=== PATIENT | female | born 1980 | race Caucasian/White ===

== ENCOUNTER 2017-01-24 16:35 | Emergency (ER) | payer BC, OTHER ==
--- NOTE | 2017-01-24 17:25 | PD ---
HPI Chief Complaint Cramping/contractions Travel History International Travel<30 Days: No Contact w/Intl Traveler<30Days: No Known Affected Area: No History of Present Illness HPI 36-year-old 002, IUP at 22.1 care complicated by asthma, history of delivery for previa Patient presents complaining of sharp, stabbing, and cramping pain that occurs every 5-7 minutes and lasts for 10 seconds. She initially noticed this about 8 or 9 PM last night but it was more irregular nature. This afternoon she started noticing this pain occurring about 5 times per hour. There are no aggravating or alleviating factors. There are no attempted treatments. She denies any painful contractions or cramping that lasts any longer period of time. She denies any vaginal bleeding or leaking of fluid. She feels normal movement. She denies any other concerns or complaints at this time. Weeks Gestation: 22 Para: 2 : 3 History Past Medical History Narrative Medical Asthma Obstetric History Obstetric History 002 1 1 for placenta previa Past Surgical History Narrative Surgical section Family History Narrative Family History HTN Social History Alcohol Use: No Tobacco Use: No Substance Abuse: No Allergies-Medications (Allergen,Severity, Reaction): Coded Allergies: No Known Allergies (Unverified , 12/24/13) Home Meds No Active Prescriptions or Reported Meds Review of Systems Except as stated in HPI: all other systems reviewed are Neg Physical Exam Narrative GENERAL: Well-nourished, well-developed patient. SKIN: Warm and dry. HEAD: Normocephalic and atraumatic. EYES: No scleral icterus. No injection or drainage. ENT: No nasal drainage noted. Mucous membranes pink. Airway patent. NECK: Supple, trachea midline. No JVD. CARDIOVASCULAR: Regular rate and rhythm without murmurs, gallops, or rubs. RESPIRATORY: Breath sounds equal bilaterally. No accessory muscle use. BREASTS: Deferred ABDOMEN/GI: Abdomen soft, non-tender, bowel sounds present, no rebound, no guarding Gravid GENITOURINARY: External Genitalia: intact and normal in appearance. Normal BUS. Physiologic discharge noted. Grossly normal rugae. No cervical or vaginal masses noted. SVE closed/thick/high. No uterine contractions noted on toco. FHT's: heart tones in the 140s, appropriate for gestational age. EXTREMITIES: No cyanosis or edema. BACK: Nontender without obvious deformity. No CVA tenderness. NEUROLOGICAL: Awake and alert. Motor and sensory grossly within normal limits. Five out of 5 muscle strength in all muscle groups. Normal speech. Musculoskeletal: Grossly normal range of motion, gait, muscle strength Psychiatric: Grossly normal memory and affect Data Data Orders Orders Vital Signs (Adult) .ON ADMISSION (01/24/17) ^ Labor Status (01/24/17) Urinalysis - C+S If Indicated (01/24/17) Diet Liquid (01/24/17 Dinner) ^ Hydration (01/24/17) Acetaminophen (Tylenol) (01/24/17 17:30) MDM Plan Assessment/plan: 1. IUP at 22.1 2. Cramping abdominal pain: No evidence of labor with no contractions noted on toco and cervix closed/thick/high. Described the nature of a typical contraction the crescendo decrescendo that lasts for typically longer than 10 seconds. Strict labor precautions given. Patient reports she feels better after receiving Tylenol. Discussed possibilities contributing to pain, but no evidence of labor. 3. Asthma: Stable 4. well-being: heart rate appropriate for gestational age. 5. UA: No evidence of UTI 6. Follow up with primary OB in 2-3 days or sooner if needed Diagnosis Diagnosis: Primary Impression: 22 weeks gestation of Additional Impression: False labor before 37 completed weeks of gestation during in third trimester, antepartum Disposition: 01 DISCHARGE HOME Condition: Good Scripts No Active Prescriptions or Reported Anusha Okeefe MD Jan 24, 2017 17:25
[2017-01-24] MEDS ORDERED: ACETAMINOPHEN 500 MG CPLT PO ONE (17:30)
[2017-01-24 17:58] LABS: BLOOD, URINE TRACE (NEG); GLUCOSE,URINE NEG (NEG); KETONE, URINE NEG (NEG); NITRITE,URINE NEG (NEG); URINE COLOR LIGHT-YELLOW (YELLW/STRAW)
[2017-01-24 18:00] LABS: COMMENT (UR) CULT NOT INDICATED; CULTURE IF INDICATED CULT NOT INDICATED
== END 2017-01-24 18:55 | disposition home or self-care (01) ==
LOC: HOBED 16:35
DX: O47.02 False labor before 37 completed weeks of gestation, second trimester (principal); Z87.09 Personal history of other diseases of the respiratory system; Z3A.22 22 weeks gestation of pregnancy
CPT/HCPCS: 59025; 81001

== ENCOUNTER 2017-04-30 11:04 | Emergency (ER) | payer BC ==
[~2017-04-30] VITALS: Ht 170.2 cm; Wt 96.6 kg
--- NOTE | 2017-04-30 11:58 | PD ---
HPI Chief Complaint contractions Date Seen: Apr 30, 2017 Travel History International Travel<30 Days: No Contact w/Intl Traveler<30Days: No Known Affected Area: No History of Present Illness HPI 37yo at 36w5 days by KISHA 05/23/17 comes in complaining of contractions. Patient states she started having contractions last night and they worsen this morning and she saw Dr. Calle in the office who stated she was 3 cm and sent her over to rule out labor. Patient complains of continued contractions that are mild but they seem to be worsening. She had a vaginal delivery followed by a section and she is considering a with this Weeks Gestation: 36 (36.5) Para: 2 : 3 History Past Medical History Narrative Medical Asthma Obstetric History Obstetric History Spontaneous vaginal delivery followed by section for placenta previa Past Surgical History Narrative Surgical Family History Family History: Negative Social History Alcohol Use: No Tobacco Use: No Substance Abuse: No Allergies-Medications (Allergen,Severity, Reaction): Coded Allergies: No Known Allergies (Unverified , 12/24/13) Home Meds No Active Prescriptions or Reported Meds Review of Systems Except as stated in HPI: all other systems reviewed are Neg Physical Exam Narrative GENERAL: Well-nourished, well-developed patient. SKIN: Warm and dry. HEAD: Normocephalic and atraumatic. EYES: No scleral icterus. No injection or drainage. ENT: No nasal drainage noted. Mucous membranes pink. Airway patent. NECK: Supple, trachea midline. No JVD. CARDIOVASCULAR: Regular rate and rhythm without murmurs, gallops, or rubs. RESPIRATORY: Breath sounds equal bilaterally. No accessory muscle use. BREASTS: Bilateral exam showed no masses , no retractions, no nipple discharge. ABDOMEN/GI: Abdomen soft, non-tender, bowel sounds present, no rebound, no guarding Gravid to [-35] weeks size Fundal Height: [-] GENITOURINARY: Patient weighs 3 cm in the office and is unchanged with examination that it has been done 1.5 hours after her arrival External Genitalia: intact and normal in appearance BUS glands: [-] Cervix: [-] Dilatation: [3-] Effacement: [50-] Station: [--2] Presentation: [-] Membranes: [intact or ruptured] intact Uterine Contractions: [-] Initially every 3-5 minutes, now contractions are rare and irregular FHT's: Category: [-1] Baseline: [140-] Reactive: [-Moderate] Variability: [-Moderate] Decels: [Absent-] EXTREMITIES: No cyanosis or edema. BACK: Nontender without obvious deformity. No CVA tenderness. NEUROLOGICAL: Awake and alert. Motor and sensory grossly within normal limits. Five out of 5 muscle strength in all muscle groups. Normal speech. Data Data Vital Signs Reviewed: Yes [facility] Medical Record Reviewed: Yes Plan 37-year-old who is at 36 weeks and 5 days who remains unchanged with improvement in her contraction pattern since seeing Dr. Calle this morning Discharge follow-up follow-up to her regular OB appointment on Saturday Labor precautions are given Diagnosis Diagnosis: Primary Impression: 36 weeks gestation of Additional Impressions: False labor before 37 completed weeks of gestation during in third trimester, antepartum Previous section complicating , antepartum condition or complication Desires (vaginal after ) trial Disposition: DISCHARGE HOME Scripts No Active Prescriptions or Reported Meds Ronit Bingham MD Apr 30, 2017 11:58
== END 2017-04-30 13:49 | disposition home or self-care (01) ==
LOC: HOBED 11:04
DX: O47.03 False labor before 37 completed weeks of gestation, third trimester (principal); O34.219 Maternal care for unspecified type scar from previous cesarean delivery; Z3A.36 36 weeks gestation of pregnancy
CPT/HCPCS: 59025

== ENCOUNTER 2017-05-15 12:09 | Inpatient (IN) | payer BC ==
[~2017-05-15] VITALS: Ht 170.2 cm; Wt 100.7 kg
[2017-05-15] VITALS (74 sets, daily range): BP systolic 96–162; BP diastolic 76–109; PULSE 63–194; RESP 15–18; TEMP 98–99.5; O2SAT 99–100
[2017-05-15] MEDS ORDERED: LACTATED RINGER'S 1000 ML INJ 1,000 ML IV PRN (13:39)
[2017-05-15] MEDS ORDERED: SODIUM CHLORID 0.9% 500 ML INJ 500 ML IV PRN (13:45)
[2017-05-15 13:57] LABS: BILIRUBIN, URINE NEG (NEG); BLOOD, URINE MOD (NEG); GLUCOSE,URINE NEG (NEG); KETONE, URINE TRACE mg/dL (NEG); MUCUS URINE FEW /lpf (OCC); NITRITE,URINE NEG (NEG); SQUAMOUS EPITHELIAL CELL URINE 2 /hpf (0-5); URINE COLOR YELLOW (YELLW/STRAW); URINE LEUKOCYTE ESTERASE TRACE (NEG)
[2017-05-15] MEDS ORDERED: SODIUM CHLOR 0.9% 1000 ML INJ 1,000 ML IV PRN (13:59)
[2017-05-15] MEDS ORDERED: CITRIC ACID-SODIUM CITRATE LIQ 30 ML UDC PO SCH (14:00)
[2017-05-15] MEDS ORDERED: MINERAL OIL 10 ML VIAL TOPICAL PRN (14:00)
[2017-05-15] MEDS ORDERED: PENICILLIN G POTASSIUM INJ 5,000,000 UNITS in SODIUM CHLORIDE 0.9% INJ 100 ML IV ONE (14:00)
[2017-05-15] MEDS ORDERED: LIDOCAINE HCL 1% 50 ML VIAL INFIL PRN (14:00)
[2017-05-15] MEDS ORDERED: OXYTOCIN 30 UNITS-500ML PREMIX 500 ML IV ONE (14:00)
[2017-05-15] MEDS ORDERED: LIDOCAINE HCL 1% 50 ML VIAL I-DERMAL PRN (14:00)
[2017-05-15 14:01] LABS: AUTOMATED NEUTROPHIL # 8.9 TH/MM3 (1.8-7.7); BASOPHIL # 0.1 TH/MM3 (0-0.2); BASOPHIL % 0.5 % (0.0-2.0); EOSINOPHIL # 0.1 TH/MM3 (0-0.4); EOSINOPHIL % 0.6 % (0.0-4.0); HEMOGLOBIN 11.9 GM/DL (11.6-15.3); LYMPH % 13.2 % (9.0-44.0); LYMPHOCYTE # 1.4 TH/MM3 (1.0-4.8); MEAN CELL VOLUME 80.9 FL (80.0-100.0); MEAN CORPUSCULAR HEMOGLOBIN 28.4 PG (27.0-34.0); MEAN CORPUSCULAR HGB CONC 35.1 % (32.0-36.0); MEAN PLATELET VOLUME 8.3 FL (7.0-11.0); MONOCYTE # 0.5 TH/MM3 (0-0.9); NEUT % 80.7 % (16.0-70.0); PLATELET COUNT 248 TH/MM3 (150-450); RED CELL DISTRIBUTION WIDTH 15.6 % (11.6-17.2)
[2017-05-15] MEDS: LACTATED RINGER'S 1000 ML INJ 1,000 ML IV SCH ×2 (14:09→21:39)
[2017-05-15] MEDS ORDERED: OXYTOCIN 30 UNITS-500ML PREMIX 500 ML IV PRN (14:15)
[2017-05-15 14:27] LABS: ALBUMIN 2.6 GM/DL (3.4-5.0); ALT (GPT) 17 U/L (10-53); AST (GOT) 26 U/L (15-37); BICARBONATE 22.1 MEQ/L (21.0-32.0); BLOOD UREA NITROGEN 11 MG/DL (7-18); CALCIUM 9.4 MG/DL (8.5-10.1); CHLORIDE 106 MEQ/L (98-107); CREATININE 0.53 MG/DL (0.50-1.00); GLOMERULAR FILTRATION RATE 131 ML/MIN (>89); GLUCOSE,RANDOM 87 MG/DL (74-106); SODIUM (NA) 138 MEQ/L (136-145)
[2017-05-15 14:29] LABS: ALKALINE PHOSPHATASE 133 U/L (45-117); TOTAL BILIRUBIN ADULT 0.1 MG/DL (0.2-1.0); TOTAL PROTEIN 7.2 GM/DL (6.4-8.2)
[2017-05-15] MEDS ORDERED: MEASLES, MUMPS, RUBELLA VACCINE 0.5 ML VIAL SQ ONE (16:00)
[2017-05-15] MEDS ORDERED: DIPHTH/TETANUS/ACEL PERTUSSIS (BOOSTER) 0.5 ML VIAL/PFS IM ONE (16:00)
[2017-05-15] MEDS ORDERED: fentaNYL 2MCG-BUPIV 0.125% INJ 100 ML ONE (17:14)
[2017-05-15] MEDS ORDERED: ePHEDrine/NS 25 MG/5 ML SYRINGE ONE ×2 (17:15→17:18)
[2017-05-15] MEDS ORDERED: BUPIVACAINE HCL PF 0.25% 10 ML VIAL ONE (17:18)
[2017-05-15] MEDS ORDERED: ePHEDrine/NS 25 MG/5 ML SYRINGE IV PUSH PRN (18:15)
[2017-05-15] MEDS ORDERED: fentaNYL 2MCG-BUPIV 0.125% 100 ML EPIDURAL SCH (18:15)
[2017-05-15] MEDS ORDERED: NO SYSTEM NARCOTICS PRN (18:15)
[2017-05-15] MEDS ORDERED: DO NOT ADMINISTER ANTICOAGULANTS PRN (18:15)
[2017-05-15] MEDS: PENICILLIN G POTASSIUM INJ 2,500,000 UNITS in SODIUM CHLORIDE 0.9% INJ 100 ML IV SCH ×2 (18:30→22:00)
--- NOTE | 2017-05-15 18:31 | HHI.HP ---
HPI Chief Complaint hypertension at 38 weeks Date Seen: May 15, 2017 Time Seen: 18:00 Travel History International Travel<30 Days: No Contact w/Intl Traveler<30Days: No Known Affected Area: No History of Present Illness HPI 37 yo who is 38 weeks and has hypertension of 150/100 and repeat 138/98. Patient negative for preeclampsia last week. She is 3-4 cm and trying to Weeks Gestation: 38 Para: 2 : 3 Last Menstrual Period: May 15, 2017 Miscarriage: 0 History Past Medical History Medical History: Denies Significant Hx Obstetric History Obstetric History 5 # and CS previa Past Surgical History Narrative Surgical none except CS Family History Family History: Negative Social History Alcohol Use: No Tobacco Use: No Substance Abuse: No Allergies-Medications (Allergen,Severity, Reaction): Coded Allergies: No Known Allergies (Unverified Allergy, Unknown, 05/15/17) Home Meds No Active Prescriptions or Reported Meds Review of Systems Except as stated in HPI: all other systems reviewed are Neg Physical Exam Vital Signs Date Time Temp Pulse Resp B/P (MAP) Pulse Ox O2 Delivery O2 Flow Rate FiO2 05/15/17 18:05 72 145/98 (114) 05/15/17 18:05 68 05/15/17 18:03 71 150/91 (110) 05/15/17 18:00 65 05/15/17 17:59 18 05/15/17 17:55 74 147/93 (111) 05/15/17 17:51 66 151/93 (112) 05/15/17 17:50 69 05/15/17 17:47 79 138/109 (119) 05/15/17 17:45 72 162/88 (112) 05/15/17 17:43 64 148/86 (106) 05/15/17 17:40 71 114/81 (92) 05/15/17 17:35 79 05/15/17 17:30 73 05/15/17 17:01 82 157/85 (109) 05/15/17 16:33 74 161/85 (110) 05/15/17 16:31 79 162/76 (104) 05/15/17 16:15 17 05/15/17 16:01 76 151/100 (117) 05/15/17 15:45 18 1/31/18 15:35 72 159/94 (115) 05/15/17 15:15 17 05/15/17 15:03 66 05/15/17 15:02 76 05/15/17 15:00 98.0 05/15/17 14:45 18 05/15/17 14:33 188 96/78 (84) Narrative GENERAL: Well-nourished, well-developed patient. SKIN: Warm and dry. HEAD: Normocephalic and atraumatic. EYES: No scleral icterus. No injection or drainage. ENT: No nasal drainage noted. Mucous membranes pink. Airway patent. NECK: Supple, trachea midline. No JVD. CARDIOVASCULAR: Regular rate and rhythm without murmurs, gallops, or rubs. RESPIRATORY: Breath sounds equal bilaterally. No accessory muscle use. BREASTS: Bilateral exam showed no masses , no retractions, no nipple discharge. ABDOMEN/GI: Abdomen soft, non-tender, bowel sounds present, no rebound, no guarding Gravid to [-] weeks size Fundal Height: 38 GENITOURINARY: External Genitalia: intact and normal in appearance BUS glands: [-] Cervix: [-] Dilatation: 3-4 Effacement: 70 Station: -2 Presentation: vtx Membranes: AROM Uterine Contractions: [-] FHT's: Category: 1 Baseline: [-] Reactive: [-] Variability: [-] Decels: [-] EXTREMITIES: No cyanosis or edema. BACK: Nontender without obvious deformity. No CVA tenderness. NEUROLOGICAL: Awake and alert. Motor and sensory grossly within normal limits. Five out of 5 muscle strength in all muscle groups. Normal speech. Caprini VTE Risk Assessment Caprini VTE Risk Assessment: No/Low Risk (score <= 1) Caprini Risk Assessment Model Point Value = 1 Point Value = 2 Point Value = 3 Point Value = 5 Age 41-60 Minor surgery BMI > 25 kg/m2 Swollen legs Varicose veins or History of unexplained or recurrent spontaneous Oral contraceptives or hormone replacement Sepsis (< 1 month) Serious lung disease, including pneumonia (< 1 month) Abnormal pulmonary function Acute myocardial infarction Congestive heart failure (< 1 month) History of inflammatory bowel disease Medical patient at bed rest Age 61-74 Arthroscopic surgery Major open surgery (> 45 min) Laparoscopic surgery (> 45 min) Malignancy Confined to bed (> 72 hours) Immobilizing plaster cast Central venous access Age >= 75 History of VTE Family history of VTE Factor V Leiden Prothrombin [id number] Lupus anticoagulant Anticardiolipin antibodies Elevated serum homocysteine Heparin-induced thrombocytopenia Other congenital or acquired thrombophilia Stroke (< 1 month) Elective arthroplasty Hip, pelvis, or leg fracture Acute spinal cord injury (< 1 month) Prophylaxis Regimen Total Risk Factor Score Risk Level Prophylaxis Regimen 0-1 Low Early ambulation 2 Moderate Order ONE of the following: *Sequential Compression Device (SCD) *Heparin 5000 units SQ BID 3-4 Higher Order ONE of the following medications: *Heparin 5000 units SQ TID *Enoxaparin/Lovenox 40 mg SQ daily (WT < 150 kg, CrCl > 30 mL/min) *Enoxaparin/Lovenox 30 mg SQ daily (WT < 150 kg, CrCl > 10-29 mL/min) *Enoxaparin/Lovenox 30 mg SQ BID (WT < 150 kg, CrCl > 30 mL/min) AND/OR *Sequential Compression Device (SCD) 5 or more Highest Order ONE of the following medications: *Heparin 5000 units SQ TID (Preferred with Epidurals) *Enoxaparin/Lovenox 40 mg SQ daily (WT < 150 kg, CrCl > 30 mL/min) *Enoxaparin/Lovenox 30 mg SQ daily (WT < 150 kg, CrCl > 10-29 mL/min) *Enoxaparin/Lovenox 30 mg SQ BID (WT < 150 kg, CrCl > 30 mL/min) AND *Sequential Compression Device (SCD) Data Data Vital Signs Reviewed: Yes Orders Orders Admit To Inpatient (05/15/17 ) Code Status (05/15/17 13:39) Vital Signs (Adult) .Per protocol (05/15/17 13:39) Heart (05/15/17 13:39) Amnioinfusion (05/15/17 13:39) Urinary Catheter Management .ONCE (05/15/17 13:39) Lactated Ringer's 1000 Ml Inj (Lr 1000 M (05/15/17 13:39) Lactated Ringer's 1000 Ml Inj (Lr 1000 M (05/15/17 13:39) Sodium Chlorid 0.9% 500 Ml Inj (Ns 500 M (05/15/17 13:45) Sodium Chlor 0.9% 1000 Ml Inj (Ns 1000 M (05/15/17 13:59) Lidocaine 1% Inj (50 Ml) (Xylocaine 1% I (05/15/17 14:00) Citric Acid-Sodium Citrate Liq (Bicitra (05/15/17 14:00) Fentanyl Inj (Fentanyl Inj) (05/15/17 14:00) Fentanyl Inj (Fentanyl Inj) (05/15/17 14:00) Penicillin G Potassium Inj (Pfizerpen-G (05/15/17 14:00) Penicillin G Potassium Inj (Pfizerpen-G (05/15/17 18:00) Complete Blood Count With Diff (05/15/17 13:39) Hold Clot (05/15/17 13:39) Abo/Rh Blood Type (05/15/17 13:39) Urinalysis - C+S If Indicated (05/15/17 13:39) Drug Screen, Random Urine (05/15/17 13:39) Resp Oxygen Non Rebreathe Mask (05/15/17 ) ^ Epidural / Intrathecal Infus (05/15/17 13:39) Oxytocin 30 Units-500ml Premix (Pitocin (05/15/17 14:00) Lidocaine 1% Inj (50 Ml) (Xylocaine 1% I (05/15/17 14:00) Light Mineral Oil (Muri-Lube Oil) (05/15/17 14:00) Inpatient Certification (05/15/17 ) Specimen To Be Collected PRN (05/15/17 13:39) Specimen To Be Collected PRN (05/15/17 13:39) ^ Non Stress Test (05/15/17 13:39) Response To Medication .Post New Med Administration, Reaction (05/15/17 13:39) ^ Discontinue Medication (05/15/17 13:39) Oxytocin 30 Units-500ml Premix (Pitocin (05/15/17 14:15) Comprehensive Metabolic Panel (05/15/17 13:41) Diet Clear Liquid (05/15/17 Lunch) Fentanyl 2mcg-Bupiv 0.125% Inj (Fentanyl (05/15/17 17:14) Ephedrine/Ns 25 Mg/5 Ml Syr (Ephedrine/N (05/15/17 17:15) Bupivacaine Pf 0.25% Inj (Marcaine Pf 0. (05/15/17 17:18) Ephedrine/Ns 25 Mg/5 Ml Syr (Ephedrine/N (05/15/17 17:18) ^ Place On Chart (05/15/17 ) ^ Medication Indications (05/15/17 ) Consent (05/15/17 ) ^ No Systemic Narcotics (05/15/17 ) ^ Call Anesthesiologist (05/15/17 ) ^ Discontinue Epidural Cathete (05/15/17 ) Anticoagulant Alert (05/15/17 ) ^ Epidural Alert (05/15/17 ) Misc Nursing Information (05/15/17 18:15) Misc Nursing Information (05/15/17 18:15) Fentanyl Inj (Fentanyl Inj) (05/15/17 18:15) Fentanyl 2mcg-Bupiv 0.125% Inj (Fentanyl (05/15/17 18:15) Ephedrine/Ns 25 Mg/5 Ml Syr (Ephedrine/N (05/15/17 18:15) Group B Strep: Positive Labs Laboratory Tests Test 05/15/17 12:41 05/15/17 13:18 Urine Color YELLOW Urine Turbidity CLEAR Urine pH 6.0 Urine Specific Leland 1.021 Urine Protein 30 Urine Glucose (UA) NEG Urine Ketones TRACE Urine Occult Blood MOD Urine Nitrite NEG Urine Bilirubin NEG Urine Urobilinogen LESS THAN 2.0 Urine Leukocyte Esterase TRACE Urine RBC 3 Urine WBC 3 Urine Squamous Epithelial Cells 2 Urine Mucus FEW Microscopic Urinalysis Comment CULT NOT INDICATED Urine Opiates Screen NEG Urine Barbiturates Screen NEG Urine Amphetamines Screen NEG Urine Benzodiazepines Screen NEG Urine Cocaine Screen NEG Urine Cannabinoids Screen NEG White Blood Count 11.0 Red Blood Count 4.20 Hemoglobin 11.9 Hematocrit 34.0 Mean Corpuscular Volume 80.9 Mean Corpuscular Hemoglobin 28.4 Mean Corpuscular Hemoglobin Concent 35.1 Red Cell Distribution Width 15.6 Platelet Count 248 Mean Platelet Volume 8.3 Neutrophils (%) (Auto) 80.7 Lymphocytes (%) (Auto) 13.2 Monocytes (%) (Auto) 5.0 Eosinophils (%) (Auto) 0.6 Basophils (%) (Auto) 0.5 Neutrophils # (Auto) 8.9 Lymphocytes # (Auto) 1.4 Monocytes # (Auto) 0.5 Eosinophils # (Auto) 0.1 Basophils # (Auto) 0.1 CBC Comment DIFF FINAL Differential Comment Blood Urea Nitrogen 11 Creatinine 0.53 Random Glucose 87 Total Protein 7.2 Albumin 2.6 Calcium Level 9.4 Alkaline Phosphatase 133 Aspartate Amino Transf (AST/SGOT) 26 Alanine Aminotransferase (ALT/SGPT) 17 Total Bilirubin 0.1 Sodium Level 138 Potassium Level 4.0 Chloride Level 106 Carbon Dioxide Level 22.1 Anion Gap 10 Estimat Glomerular Filtration Rate 131 Assessment/Plan Problem List: (1) 38 weeks gestation of ICD Codes: Z3A.38 - 38 weeks gestation of (2) Hypertension affecting in third trimester ICD Codes: O16.3 - Unspecified maternal hypertension, third trimester Discharge Planning doing well for induction with AROM and small pitocin Marquis Chowdary MD May 15, 2017 18:31
--- NOTE | 2017-05-15 21:28 | PD.OB.DELI ---
Weeks gestation: 38 Gest age assessed date: May 15, 2017 Gest age assessed time: 12:00 Active labor start date: May 15, 2017 Active labor start time: 12:00 Medical induction of labor?: Yes Medical induction start date: May 15, 2017 Medical induction start time: 12:00 Artificial rupture of membrane: Yes Anesthesia: Epidural Episiotomy: None Vaginal Delivery: Normal, Spontaneous, Presentation: Occiput anterior Nuchal Cord: x1 Delayed cord clamping (45 sec): Yes Infant: Male, Single Delivery date: May 15, 2017 Delivery time: 21:09 One Minute : 9 Five Minute : 9 Placenta: Spontaneous delivery, Intact, 3 vessel cord Laceration: Vaginal laceration, 2 deg Repair: Chromic running Estimated blood loss: 300 Marquis Chowdary MD May 15, 2017 21:27
[2017-05-15] MEDS ORDERED: oxyCODONE/ACETAMINOPHEN 5 MG/325 MG TAB PO PRN ×2 (21:30)
[2017-05-15] MEDS ORDERED: OXYTOCIN 30 UNITS-500ML PREMIX 500 ML IV SCH (21:30)
[2017-05-15] MEDS ORDERED: ZOLPIDEM TARTRATE 5 MG TAB PO PRN (21:30)
[2017-05-15] MEDS ORDERED: ONDANSETRON ODT 4 MG TAB PO PRN (21:30)
[2017-05-15] MEDS ORDERED: SODIUM CHLORIDE 0.9% FLUSH 10 ML FLUSH IV FLUSH PRN (21:30)
[2017-05-15] MEDS ORDERED: ALUMINUM/MAGNESIUM/SIMETH 30 ML CUP PO PRN (21:30)
[2017-05-15] MEDS ORDERED: ACETAMINOPHEN 325 MG TAB PO PRN (21:30)
[2017-05-15] MEDS ORDERED: BENZOCAINE 20% TOPICAL SPRAY 60 ML CAN TOPICAL PRN (21:30)
[2017-05-15] MEDS ORDERED: WITCH HAZEL 50%/GLYCERIN 12.5% 40 PAD JAR TOPICAL PRN (21:30)
[2017-05-15] MEDS: IBUPROFEN 800 MG TAB PO PRN (21:56)
[2017-05-16 00:15] VITALS: BP 134/86; PULSE 65; RESP 18; TEMP 98.7
[2017-05-16] MEDS: PENICILLIN G POTASSIUM INJ 2,500,000 UNITS in SODIUM CHLORIDE 0.9% INJ 100 ML IV SCH (02:53)
[2017-05-16] MEDS: LACTATED RINGER'S 1000 ML INJ 1,000 ML IV SCH ×3 (03:43→22:07)
[2017-05-16] MEDS: DOCUSATE SODIUM 50 MG/SENNA 8.6 MG TAB PO PRN (05:13)
[2017-05-16] MEDS: IBUPROFEN 800 MG TAB PO PRN ×3 (05:14→22:49)
[2017-05-16 08:00] VITALS: BP 135/83; PULSE 73; RESP 16; TEMP 98.4
--- NOTE | 2017-05-16 13:17 | HHI.OB ---
Subjective Post Day: 1 Remarks Pt doing well Objective Vitals/I&O Vital Signs Date Time Temp Pulse Resp B/P (MAP) Pulse Ox O2 Delivery O2 Flow Rate FiO2 05/16/17 08:00 98.4 73 16 135/83 (100) 05/16/17 00:15 98.7 65 18 134/86 (102) 05/15/17 22:16 94 139/99 (112) 05/15/17 22:01 86 140/87 (104) 05/15/17 21:46 194 138/96 (110) 05/15/17 21:31 96 148/79 (102) 05/15/17 21:24 98.9 05/15/17 21:23 15 05/15/17 21:19 99 136/76 (96) 05/15/17 21:01 90 160/76 (104) 05/15/17 21:00 107 05/15/17 21:00 100 05/15/17 20:55 94 100 05/15/17 20:50 78 100 05/15/17 20:45 82 100 05/15/17 20:40 77 100 05/15/17 20:35 79 05/15/17 20:35 100 05/15/17 20:31 77 145/90 (108) 05/15/17 20:30 100 05/15/17 20:30 81 05/15/17 20:25 80 100 05/15/17 20:20 70 100 05/15/17 20:15 67 100 05/15/17 20:15 99.5 05/15/17 20:10 65 99 05/15/17 20:05 74 99 05/15/17 20:01 73 147/89 (108) 05/15/17 20:00 73 05/15/17 20:00 99 05/15/17 19:55 71 100 05/15/17 19:50 73 99 05/15/17 19:45 75 100 05/15/17 19:40 80 100 05/15/17 19:35 100 05/15/17 19:35 68 05/15/17 19:30 72 157/96 (116) 05/15/17 19:30 100 05/15/17 19:30 74 05/15/17 19:25 100 05/15/17 19:25 81 05/15/17 19:16 78 143/95 (111) 05/15/17 19:15 100 05/15/17 19:15 70 05/15/17 19:10 100 05/15/17 19:10 72 05/15/17 19:05 100 05/15/17 19:05 68 05/15/17 19:01 76 159/88 (111) 05/15/17 19:00 100 05/15/17 19:00 84 05/15/17 18:55 71 05/15/17 18:55 100 05/15/17 18:50 100 05/15/17 18:50 63 05/15/17 18:46 71 153/87 (109) 05/15/17 18:45 100 05/15/17 18:45 70 05/15/17 18:40 65 05/15/17 18:35 65 05/15/17 18:31 67 150/85 (106) 05/15/17 18:30 63 05/15/17 18:25 67 05/15/17 18:20 68 05/15/17 18:15 87 05/15/17 18:15 65 155/97 (116) 05/15/17 18:10 71 05/15/17 18:10 78 158/99 (118) 05/15/17 18:05 72 145/98 (114) 05/15/17 18:05 68 05/15/17 18:03 71 150/91 (110) 05/15/17 18:00 65 05/15/17 17:59 18 05/15/17 17:55 74 147/93 (111) 05/15/17 17:51 66 151/93 (112) 05/15/17 17:50 69 05/15/17 17:47 79 138/109 (119) 05/15/17 17:45 72 162/88 (112) 05/15/17 17:43 64 148/86 (106) 05/15/17 17:40 71 114/81 (92) 05/15/17 17:35 79 05/15/17 17:30 73 05/15/17 17:01 82 157/85 (109) 05/15/17 16:33 74 161/85 (110) 05/15/17 16:31 79 162/76 (104) 05/15/17 16:15 17 05/15/17 16:01 76 151/100 (117) 05/15/17 15:45 18 05/15/17 15:35 72 159/94 (115) 05/15/17 15:15 17 05/15/17 15:03 66 05/15/17 15:02 76 05/15/17 15:00 98.0 05/15/17 14:45 18 05/15/17 14:33 188 96/78 (84) Objective Remarks GENERAL: Well-nourished, well-developed patient. CARDIOVASCULAR: Regular rate and rhythm without murmurs, gallops, or rubs. RESPIRATORY: Breath sounds equal bilaterally. No accessory muscle use. ABDOMEN/GI: Abdomen soft, non-tender. Fundus: Firm, non-tender at umbilicus. GENITOURINARY: Light to moderate bleeding. EXTREMITIES: No cyanosis or edema, non-tender, without signs of DVT. Medications and IVs Current Medications Medications (Trade) Dose Ordered Sig/Biju Route Start Time Stop Time Status Last Admin Lactated Ringer's 1,000 ml @ 125 mls/hr Q8H IV 05/15/17 13:39 05/16/17 03:43 Lactated Ringer's 1,000 ml @ 3,000 mls/hr Q20M PRN IV 05/15/17 13:39 Sodium Chloride 500 ml @ 1,000 mls/hr ONCE PRN IV 05/15/17 13:45 05/17/17 13:44 Sodium Chloride 1,000 ml @ 100 mls/hr Q10H PRN IV 05/15/17 13:59 (Xylocaine 1% Inj (50 ml)) 0.1 ml UNSCH X1 PRN I-DERMAL 05/15/17 14:00 05/18/17 13:59 (Bicitra Liq) 30 ml [employer] PO 05/15/17 14:00 05/19/17 13:59 (Xylocaine 1% Inj (50 ml)) 10 ml UNSCH X1 PRN INFIL 05/15/17 14:00 05/17/17 13:59 (Muri-Lube Oil) 10 ml UNSCH PRN TOPICAL 05/15/17 14:00 Miscellaneous Information No systemic narcotics to be given except... UNSCH PRN .XX 05/15/17 18:15 05/16/17 18:14 Miscellaneous Information DO NOT ADMINISTER ANY ANTICOAGUL... UNSCH PRN .XX 05/15/17 18:15 05/16/17 18:14 Fentanyl/ Bupivacaine HCl 100 ml @ 0 mls/hr TITRATE EPIDURAL 05/15/17 18:15 (ePHEDrine/NS 25 MG/5 ML SYR) 10 mg UNSCH PRN IV PUSH 05/15/17 18:15 05/16/17 18:14 (NS Flush) 2 ml BID IV FLUSH 05/16/17 09:00 (NS Flush) 2 ml UNSCH PRN IV FLUSH 05/15/17 21:30 (Tylenol) 650 mg Q4H PRN PO 05/15/17 21:30 (Motrin) 800 mg Q8H PRN PO 05/15/17 21:30 05/16/17 05:14 (Percocet 5-325 Mg) 1 tab Q4H PRN PO 05/15/17 21:30 (Percocet 5-325 Mg) 2 tab Q4H PRN PO 05/15/17 21:30 (Americaine 20% Top Spr) 1 spray Q4H PRN TOPICAL 05/15/17 21:30 05/16/17 05:13 (Tucks Pads) 1 applic QID PRN TOPICAL 05/15/17 21:30 05/16/17 05:13 (Lauryn-Colace) 2 tab Q12H PRN PO 05/15/17 21:30 05/16/17 05:13 (Ambien) 5 mg HS PRN PO 05/15/17 21:30 (Mag-Al Plus Susp Liq) 15 ml Q8H PRN PO 05/15/17 21:30 (Zofran Odt) 4 mg Q6H PRN PO 05/15/17 21:30 Assessment/Plan Problem List: (1) 38 weeks gestation of ICD Codes: Z3A.38 - 38 weeks gestation of (2) Hypertension affecting in third trimester ICD Codes: O16.3 - Unspecified maternal hypertension, third trimester Assessment and Plan PPD # 1 s/p doing well Discharge Planning routine care Brenda Strickland MD May 16, 2017 13:17
[2017-05-16] MEDS: SODIUM CHLORIDE 0.9% FLUSH 10 ML FLUSH IV FLUSH SCH ×2 (21:24→21:25)
[2017-05-16 21:30] VITALS: BP 139/85; PULSE 79; RESP 8; TEMP 97.8
[2017-05-17] MEDS: LACTATED RINGER'S 1000 ML INJ 1,000 ML IV SCH (06:23)
[2017-05-17] MEDS: DOCUSATE SODIUM 50 MG/SENNA 8.6 MG TAB PO PRN (10:14)
[2017-05-17] MEDS: IBUPROFEN 800 MG TAB PO PRN (10:14)
--- NOTE | 2017-05-17 12:36 | HHI.DCPOC ---
Discharge Care Plan Diagnosis: (1) (normal spontaneous vaginal delivery) Report Symptoms to Your Doctor -Temperature above 100.5 degrees -Redness, of incision or excessive or foul smelling drainage -Unusual pain or calf pain -Increased vaginal bleeding -Painful or difficulty urinating -Feelings of extreme sadness or anxiety after 2 weeks Goals to Promote Your Health * To prevent worsening of your condition and complications * To maintain your health at the optimal level Directions to Meet Your Goals Take your medications as prescribed Follow your dietary instruction Follow activity as directed Ensure plenty of rest for recovery Drink fluids for hydration Keep your appointments as scheduled Take your immunizations and boosters as scheduled If your symptoms worsen call your PCP, if no PCP go to Urgent Care Center or Emergency Room Smoking is Dangerous to Your Health. Avoid second hand smoke Call the 24-hour crisis hotline for domestic abuse at Brenda Strickland MD May 17, 2017 12:36
--- NOTE | 2017-05-17 12:37 | HHI.DS ---
Admission Date May 15, 2017 at 12:09 Admitting Diagnosis Diagnosis: Delivery Date: May 15, 2017 Vaginal Delivery: Normal : Male, Single Brief History 37 yo who is 38 weeks and has hypertension of 150/100 and repeat 138/98. Patient negative for preeclampsia last week. She is 3-4 cm and trying to Pt Condition on Discharge: Good Discharge Disposition: Discharge Home Discharge Instructions Diet Instructions: As Tolerated, No Restrictions Activities You Can Perform: Pelvic Rest Brenda Strickland MD May 17, 2017 12:37
[2017-05-18] MEDS ORDERED: INFLUENZA VIRUS VACCINE (QUADRIVALENT) 0.5 ML SYR IM ONE (10:00)
== END 2017-05-17 16:50 | disposition home or self-care (01) | DRG 775 ==
LOC: H2EA 12:09 → H1EA 23:59
PROVIDERS: ADMIT Obstetrics & Gynecology; ATTEND Obstetrics & Gynecology
PROC: 10E0XZZ Delivery of Products of Conception, External Approach (ICD-10-PCS; principal; 2017-05-15)
PROC: 0KQM0ZZ Repair Perineum Muscle, Open Approach (ICD-10-PCS; 2017-05-15)
PROC: 10907ZC Drainage of Amniotic Fluid, Therapeutic from Products of Conception, Via Natural or Artificial Opening (ICD-10-PCS; 2017-05-15)
PROC: 3E033VJ Introduction of Other Hormone into Peripheral Vein, Percutaneous Approach (ICD-10-PCS; 2017-05-15)
DX: O16.4 Unspecified maternal hypertension, complicating childbirth (principal); O71.4 Obstetric high vaginal laceration alone; O69.81X0 Labor and delivery complicated by cord around neck, without compression, not applicable or unspecified; O34.219 Maternal care for unspecified type scar from previous cesarean delivery; Z3A.38 38 weeks gestation of pregnancy; Z37.0 Single live birth
CPT/HCPCS: 59025; 80053; 80307; 81001; 85025; 86900; 86901; 90715; J2540; J2590; J7120

== ENCOUNTER 2017-06-18 11:43 | Observation (INO) | payer BC ==
[~2017-06-18] VITALS: Ht 175.3 cm; Wt 91.8 kg
[2017-06-18 11:58] VITALS: BP 165/78; PULSE 84; RESP 15; TEMP 99.4; O2SAT 98
[2017-06-18] MEDS ORDERED: LACTATED RINGER'S 1000 ML INJ 1,000 ML IV ONE (12:00)
[2017-06-18] MEDS ORDERED: ROCURONIUM INJ 50 MG/5 ML SYRINGE IV PUSH ONE (12:00)
[2017-06-18] MEDS ORDERED: PROPOFOL 200 MG/20 ML AMP IV ONE (12:00)
[2017-06-18] MEDS ORDERED: ONDANSETRON HCL 4 MG/2 ML VIAL IV ONE (12:00)
[2017-06-18] MEDS ORDERED: DEXAMETHASONE SOD PHOS 4 MG/ML VIAL IV ONE (12:00)
[2017-06-18 14:18] LABS: AUTOMATED NEUTROPHIL # 16.6 TH/MM3 (1.8-7.7); BASOPHIL # 0.1 TH/MM3 (0-0.2); BASOPHIL % 0.4 % (0.0-2.0); EOSINOPHIL % 0.1 % (0.0-4.0); HEMATOCRIT 36.8 % (35.0-46.0); HEMOGLOBIN 12.3 GM/DL (11.6-15.3); LYMPH % 6.8 % (9.0-44.0); LYMPHOCYTE # 1.3 TH/MM3 (1.0-4.8); MEAN CELL VOLUME 80.4 FL (80.0-100.0); MEAN CORPUSCULAR HEMOGLOBIN 26.8 PG (27.0-34.0); MEAN CORPUSCULAR HGB CONC 33.3 % (32.0-36.0); MEAN PLATELET VOLUME 7.8 FL (7.0-11.0); MONO % 3.7 % (0.0-8.0); MONOCYTE # 0.7 TH/MM3 (0-0.9); PLATELET COUNT 326 TH/MM3 (150-450); RED BLOOD COUNT 4.58 MIL/MM3 (4.00-5.30); RED CELL DISTRIBUTION WIDTH 15.4 % (11.6-17.2); WHITE BLOOD COUNT 18.7 TH/MM3 (4.0-11.0)
[2017-06-18 14:23] LABS: BILIRUBIN, URINE NEG (NEG); BLOOD, URINE SMALL (NEG); GLUCOSE,URINE NEG (NEG); KETONE, URINE NEG (NEG); MUCUS URINE FEW /lpf (OCC); NITRITE,URINE NEG (NEG); PH, URINE 5.5 (5.0-8.5); SQUAMOUS EPITHELIAL CELL URINE 7 /hpf (0-5); TRANSITIONAL EPI CELLS, URINE <1 /hpf; URINE COLOR YELLOW (YELLW/STRAW); URINE LEUKOCYTE ESTERASE NEG (NEG)
[2017-06-18 14:32] LABS: PROTHROMBIN TIME - PATIENT 10.6 SEC (9.8-11.6)
[2017-06-18 14:33] LABS: ALBUMIN 3.6 GM/DL (3.4-5.0); AST (GOT) 45 U/L (15-37); BICARBONATE 25.9 MEQ/L (21.0-32.0); BLOOD UREA NITROGEN 7 MG/DL (7-18); CALCIUM 8.7 MG/DL (8.5-10.1); CHLORIDE 102 MEQ/L (98-107); GLOMERULAR FILTRATION RATE 95 ML/MIN (>89); GLUCOSE,RANDOM 110 MG/DL (74-106); SODIUM (NA) 137 MEQ/L (136-145)
[2017-06-18 14:34] LABS: ALT (GPT) 66 U/L (10-53)
[2017-06-18 14:36] LABS: ALKALINE PHOSPHATASE 116 U/L (45-117); TOTAL BILIRUBIN ADULT 0.5 MG/DL (0.2-1.0); TOTAL PROTEIN 7.6 GM/DL (6.4-8.2)
[2017-06-18] MEDS ORDERED: SODIUM CHLOR 0.9% 1000 ML INJ 1,000 ML IV SCH ×2 (14:57→17:58)
--- NOTE | 2017-06-18 14:57 | PD ---
HPI Chief Complaint: Abdominal Pain Time Seen by Provider: 14:41 Travel History International Travel<30 days: No Contact w/Intl Traveler<30days: No Traveled to known affect area: No History of Present Illness HPI 37-year-old female, 4 weeks after , presents to the emergency Department with complaint of right lower quadrant abdominal pain since last night. Denies fever but says she has felt warm and chills. She has taken her temperature and she did not have a fever. Reports nausea and diarrhea. Denies vomiting. Denies abnormal vaginal discharge, odor, vaginal bleeding, dysuria. Has taken Motrin with no relief of symptoms. Rates pain 7/10. Worse with walking and standing. Denies history of abdominal surgeries, other than a C- section in 2008. No known relieving factors. Primary care provider is at [facility]. Allergies to shellfish and cats. Denies significant past medical history. Has no other medical complaints. No other modifying factors or associated signs and symptoms. PFSH Past Medical History Medical History: Denies Significant Hx Tetanus Vaccination: < 5 Years ?: Not LMP: 05/15/17 : 3 Para: 3 Past Surgical History Section: Yes Social History Alcohol Use: No Tobacco Use: No Substance Use: No Allergies-Medications (Allergen,Severity, Reaction): Uncoded Allergies: CATS (Allergy, Unknown, 05/16/17) SHELLFISH (Allergy, Unknown, 05/16/17) Reported Meds & Prescriptions Reported Meds & Active Scripts Active No Active Prescriptions or Reported Medications Review of Systems Except as stated in HPI: all other systems reviewed are Neg Physical Exam Narrative GENERAL: Well-nourished, well-developed female patient, in no acute distress; afebrile; nontoxic appearing SKIN: Warm and dry. HEAD: Atraumatic. Normocephalic. EYES: Pupils equal and round. No scleral icterus. No injection or drainage. ENT: Mucosa pink and moist. Airway patent. NECK: Trachea midline. CARDIOVASCULAR: Regular rate and rhythm. No murmur appreciated. RESPIRATORY: No accessory muscle use. Clear to auscultation. Breath sounds equal bilaterally. GASTROINTESTINAL: Abdomen soft, tenderness on palpation to right lower and left lower quadrants, nondistended. Hepatic and splenic margins not palpable. Bowel sounds are active 4 quadrants. Nonrigid. No guarding. BACK: No CVA tenderness. MUSCULOSKELETAL: No obvious deformities. No clubbing. No cyanosis. No edema. NEUROLOGICAL: Awake and alert. Oriented 3. No obvious cranial nerve deficits. Motor grossly within normal limits. Normal speech. PSYCHIATRIC: Appropriate mood and affect; insight and judgment normal. Data Data Last Documented VS Vital Signs Date Time Temp Pulse Resp B/P (MAP) Pulse Ox O2 Delivery O2 Flow Rate FiO2 06/18/17 11:58 99.4 84 15 165/78 (107) 98 Orders Orders Complete Blood Count With Diff (06/18/17 12:00) Comprehensive Metabolic Panel (06/18/17 12:00) Lipase (06/18/17 12:00) Prothrombin Time / Inr (Pt) (06/18/17 12:00) Act Partial Throm Time (Ptt) (06/18/17 12:00) Urinalysis - C+S If Indicated (06/18/17 12:00) Ed Urine Pregnancytest Poc (06/18/17 12:00) Ct Abd/Pel W/O Iv Contrast (06/18/17 14:57) Iv Access Insert/Monitor (06/18/17 14:57) Sodium Chlor 0.9% 1000 Ml Inj (Ns 1000 M (06/18/17 14:57) Sodium Chloride 0.9% Flush (Ns Flush) (06/18/17 15:00) Ketorolac Inj (Toradol Inj) (06/18/17 15:00) Admit Order (Ed Use Only) (06/18/17 16:26) NPO (06/18/17 16:26) Labs Laboratory Tests Test 06/18/17 13:54 White Blood Count 18.7 TH/MM3 Red Blood Count 4.58 MIL/MM3 Hemoglobin 12.3 GM/DL Hematocrit 36.8 % Mean Corpuscular Volume 80.4 FL Mean Corpuscular Hemoglobin 26.8 PG Mean Corpuscular Hemoglobin Concent 33.3 % Red Cell Distribution Width 15.4 % Platelet Count 326 TH/MM3 Mean Platelet Volume 7.8 FL Neutrophils (%) (Auto) 89.0 % Lymphocytes (%) (Auto) 6.8 % Monocytes (%) (Auto) 3.7 % Eosinophils (%) (Auto) 0.1 % Basophils (%) (Auto) 0.4 % Neutrophils # (Auto) 16.6 TH/MM3 Lymphocytes # (Auto) 1.3 TH/MM3 Monocytes # (Auto) 0.7 TH/MM3 Eosinophils # (Auto) 0.0 TH/MM3 Basophils # (Auto) 0.1 TH/MM3 CBC Comment DIFF FINAL Differential Comment Prothrombin Time 10.6 SEC Prothromb Time International Ratio 1.0 RATIO Activated Partial Thromboplast Time 26.4 SEC Urine Color YELLOW Urine Turbidity HAZY Urine pH 5.5 Urine Specific [place] 1.017 Urine Protein TRACE mg/dL Urine Glucose (UA) NEG mg/dL Urine Ketones NEG mg/dL Urine Occult Blood SMALL Urine Nitrite NEG Urine Bilirubin NEG Urine Urobilinogen LESS THAN 2.0 MG/DL Urine Leukocyte Esterase NEG Urine RBC 1 /hpf Urine WBC 1 /hpf Urine Squamous Epithelial Cells 7 /hpf Urine Transitional Epithelial Cells <1 /hpf Urine Mucus FEW /lpf Microscopic Urinalysis Comment CULT NOT INDICATED Blood Urea Nitrogen 7 MG/DL Creatinine 0.70 MG/DL Random Glucose 110 MG/DL Total Protein 7.6 GM/DL Albumin 3.6 GM/DL Calcium Level 8.7 MG/DL Alkaline Phosphatase 116 U/L Aspartate Amino Transf (AST/SGOT) 45 U/L Alanine Aminotransferase (ALT/SGPT) 66 U/L Total Bilirubin 0.5 MG/DL Sodium Level 137 MEQ/L Potassium Level 3.7 MEQ/L Chloride Level 102 MEQ/L Carbon Dioxide Level 25.9 MEQ/L Anion Gap 9 MEQ/L Estimat Glomerular Filtration Rate 95 ML/MIN Lipase 80 U/L [facility] Medical Decision Making Medical Screen Exam Complete: Yes Emergency Medical Condition: Yes Medical Record Reviewed: Yes Differential Diagnosis Retained products of conception, appendicitis, UTI, pyelonephritis Narrative Course 37-year-old female with lower abdominal pain on exam. Came in complaining of right lower quadrant abdominal pain. She is 4 weeks after a . CBC, coags, CMP, lipase, urinalysis, UPT ordered in triage. WBC 18.7. Coags unremarkable. AST 45, ALT 66, lipase 80, otherwise CMP unremarkable. Urinalysis without signs of infection. UPT negative. Patient is allergic to shellfish. I discussed lab findings and patient with Dr. Richardson and she agrees with my plan of care and recommended CT without IV contrast. CT abdomen/ pelvis, IV, normal saline bolus, Toradol ordered. I offered the patient Zofran for nausea and she declined. 1601: CT abdomen/pelvis concludes: 1. Acute inflammatory process centered around the appendix and extending into the right hemipelvis felt to relate to an acute appendicitis. No perforation, abscess, or obstruction; Trace amount of free fluid within the cul-de-sac; Degenerating fibroids; Hepatic steatosis. Call placed to general surgeon. 1615: I spoke with Dr. Rebolledo and report given for patient admission. Physician Communication Physician Communication Dr. Rebolledo, General Surgeon Diagnosis Primary Impression: Acute appendicitis Qualified Codes: K35.80 - Unspecified acute appendicitis Admitting Information Admitting Physician Requests: Admit Scripts No Active Prescriptions or Reported Meds Lynne Neil Jun 18, 2017 14:57
[2017-06-18] MEDS ORDERED: KETOROLAC TROMETHAMINE 30 MG/ML (IVP) VIAL IVP ONE (15:00)
[2017-06-18] MEDS ORDERED: SODIUM CHLORIDE 0.9% FLUSH 10 ML FLUSH IV FLUSH PRN ×2 (15:00→18:00)
--- NOTE | 2017-06-18 15:52 | RADRPT ---
EXAM DATE/TIME: 06/18/2017 15:35 [place] COMPARISON: No previous studies available for comparison. INDICATIONS : Right lower quadrant pain, nausea, diarrhea. ORAL CONTRAST: No oral contrast ingested. RADIATION DOSE: 9.10 CTDIvol (mGy) MEDICAL HISTORY : None SURGICAL HISTORY : section. ENCOUNTER: Initial ACUITY: 1 day PAIN SCALE: 8/10 LOCATION: Right lower quadrant TECHNIQUE: Volumetric scanning of the abdomen and pelvis was performed. Using automated exposure control and ad justment of the mA and/or kV according to patient size, radiation dose was kept as low as reasonably achievable to obtain optimal diagnostic quality images. DICOM format image data is available electro nically for review and comparison. FINDINGS: LOWER LUNGS: The visualized lower lungs are clear. LIVER: Homogeneously low density without lesion. There is no dilation of the biliary tree. No calcified ga llstones. SPLEEN: Normal size without lesion. PANCREAS: Within normal limits. KIDNEYS: Normal in size and shape. There is no mass, stone, or hydronephrosis. ADRENAL GLANDS: Within normal limits. VASCULAR: There is no aortic aneurysm. BOWEL/MESENTERY: There is an inflammatory process within the right lower quadrant centered around the appendix. There is a tubular soft tissue structure felt to relate to a dilated appendix measuring 18 mm within the ce ntral portion of this inflammation. Inflammation extends into the right hemipelvis. No abscess. No pe rforation. The remaining bowel structures are unremarkable with exception of scattered colonic divert iculi. ABDOMINAL WALL: Within normal limits. RETROPERITONEUM: There is no lymphadenopathy. BLADDER: No wall thickening or mass. REPRODUCTIVE: Multiple degenerating fibroids are seen. Most are calcified. These average 1.5 cm in size. The uterus has a lobulated contour and is anteverted. A trace amount of free fluid within the cul-de-sac. INGUINAL: There is no lymphadenopathy or hernia. MUSCULOSKELETAL: Within normal limits for patient age. CONCLUSION: 1. Acute inflammatory process centered around the appendix and extending into the right hemipelvis fe lt to relate to an acute appendicitis. No perforation, abscess, or obstruction. 2. Trace amount of free fluid within the cul-de-sac. 3. Degenerating fibroids. 4. Hepatic steatosis. To Gleason Jr., MD on June 18, 2017 at 15:46 Board Certified Radiologist. This report was verified electronically.
[2017-06-18] MEDS ORDERED: LEVOFLOXACIN 500 MG PREMIX INJ 100 ML IV SCH (18:00)
[2017-06-18] MEDS ORDERED: metroNIDAZOLE 500 MG INJ 100 ML IV SCH (18:00)
[2017-06-18 18:20] VITALS: BP 136/83; TEMP 99.5
[2017-06-18] MEDS ORDERED: fentaNYL CITRATE 250 MCG/5 ML AMP ONE (19:38)
[2017-06-18] MEDS ORDERED: SUGAMMADEX SODIUM 200 MG/2 ML VIAL IV PUSH ONE (19:38)
[2017-06-18] MEDS ORDERED: ACETAMINOPHEN 1000 MG/100 ML 100 ML IV ONE (19:38)
[2017-06-18] MEDS ORDERED: BUPIVACAINE/EPINEPHRINE 0.5% 50 ML VIAL ONE ×2 (19:48→19:53)
[2017-06-18] MEDS ORDERED: SODIUM CHLORIDE 0.9% FLUSH 10 ML FLUSH IV FLUSH SCH (21:00)
--- NOTE | 2017-06-18 21:18 | HHI.PR ---
cc: Christian Rebolledo MD Immediate Post Op Note Procedure Date: Jun 18, 2017 Pre Op Diagnosis: (1) Peritonitis (acute) generalized (2) Acute appendicitis Post Op Diagnosis: (1) Acute appendicitis (2) Peritonitis (acute) generalized Surgeon: Christian Rebolledo Payroll And Benefits Assistant(s): Please refer to OR records Procedure: Laparoscopic appendectomy Findings: Inflamed retrocecal appendicitis Fibroids of the uterus Additional Information: Normal liver normal gallbladder Complications: None Specimen(s) removed: Appendix Anesthesia: General Drains: None IVF Patient to: PACU Patient Condition: Good Implant/Devices: SEE IMPLANT LOG (if applicable) Date/Time of Procedure: SEE SURGICAL CARE RECORD Christian Rebolledo MD Jun 18, 2017 21:17
[2017-06-18] MEDS ORDERED: LACTATED RINGER'S 1000 ML INJ 1,000 ML IV SCH (21:22)
--- NOTE | 2017-06-18 21:22 | PD.OP ---
cc: Christian Rebolledo MD Operative Report Preoperative Diagnosis: (1) Acute appendicitis (2) Peritonitis (acute) generalized Postoperative Diagnosis: (1) Peritonitis (acute) generalized (2) Acute appendicitis Procedure: Laparoscopic appendectomy Anesthesia: Gen. Surgeon: Christian Rebolledo Stereotype Finisher(s): Please refer to OR record Resident Surgeon: None Operation and Findings: PREOP DIAGNOSIS: Acute Abdomen peritonitis Appendicitis POSTOP DIAGNOSIS: Acute Appendicitis PROCEDURE: Laparoscopic Appendectomy ANESTHESIA: Gen. SURGEON: Dr. Christian Rebolledo M.D. ASSIST: Please refer to or record INDICATIONS: Patient presented with a clinical diagnosis consistent with appendicitis plans are made for above. DESCRIPTION OF PROCEDURE: Patient was brought to the operating room placed under general anesthesia. Patient was given preoperative antibiotics and had sequential compression devices placed to the lower extremities. After prepping the and draping the abdomen with antiseptic. She is allergic to Betadine soaked we did not use Betadine. A 10 mm incision is made just in the supraumbilical area the veres needle was inserted and then the saline load test is performed. After insufflating the abdomen with 15 mm of pressure of CO2 a 10 mm trocars and placed in the abdomen. The camera was introduced into the 10 mm port and the other working 5mm ports are placed in the midline, one above the pubic tubercle and one in between the 2 previously placed ports. The Camera is introduced and the appendix can be seen and is obviously inflamed. Appendix is somewhat retrocecal The appendix is then grasped and the mesentery taken down with harmonic scalpel. Two PDS endo- ties are then placed around the base of the appendix, the appendix is amputated off the cecum and placed in the Endo Catch and pulled out through the umbilicus incision. Irrigation is used and we checked our dissections dissection site for hemostasis. Liver is smooth gallbladder is normal She has a fibroid uterus The trocars were then removed the 10 mm port sites closed with a 0 Vicryl at the fascial layer and the skin with 4-0 Vicryl. Patient returned to the recovery room in stable condition. Christian Rebolledo MD Jun 18, 2017 21:21
[2017-06-18] MEDS ORDERED: DO NOT ADM ANY ANTICOAGULANT DRUGS PRN (21:23)
[2017-06-18] MEDS ORDERED: NORC5TAB PO (21:25)
[2017-06-18] MEDS ORDERED: IBUPROFEN 600 MG TAB PO PRN (21:30)
[2017-06-18] MEDS ORDERED: HYDROmorphone HCL PF 1 MG/ML VIAL IV PUSH PRN (21:30)
[2017-06-18] MEDS ORDERED: METOCLOPRAMIDE HCL 10 MG/2 ML VIAL IVS PRN (21:30)
[2017-06-18] MEDS ORDERED: ONDANSETRON HCL 4 MG/2 ML VIAL IV PUSH PRN (21:30)
[2017-06-18] MEDS ORDERED: KETOROLAC TROMETHAMINE 30 MG/ML (IVP) VIAL IVP PRN (21:30)
[2017-06-18] MEDS ORDERED: Post-op Orders (for Pharmacy) XX ONE (21:30)
[2017-06-18] MEDS ORDERED: ACETAMINOPHEN/HYDROcodone 325 MG/5 MG TAB PO PRN ×2 (21:30)
[2017-06-18] MEDS ORDERED: HYDROmorphone HCL PF 2 MG/ML VIAL IV PUSH PRN (21:45)
[2017-06-18 23:15] VITALS: BP 127/73; PULSE 69; RESP 17; TEMP 96; O2SAT 93
[2017-06-19] MEDS: ACETAMINOPHEN 1000 MG/100 ML 100 ML IV SCH ×2 (01:53→06:02)
[2017-06-19 04:10] VITALS: BP 122/66; PULSE 58; RESP 16; TEMP 96.3; O2SAT 96
[2017-06-19 08:00] VITALS: BP 119/76; PULSE 66; RESP 18; TEMP 96.2; O2SAT 97
[2017-06-19] MEDS ORDERED: PANTOPRAZOLE SODIUM 40 MG VIAL IV PUSH SCH (09:00)
--- NOTE | 2017-06-19 09:05 | MH ---
cc: Christian Rebolledo MD DATE OF ADMISSION: 06/18/2017 REASON FOR ADMISSION: 1. Acute appendicitis. 2. Peritonitis. 3. Elevated white count. HISTORY OF PRESENT ILLNESS: This is a 37-year-old female who began experiencing some abdominal pain yesterday. She tried to tough it out. She thought it might be her gallbladder, but then the pain just went to her right lower quadrant. She came to the emergency room, where it was felt that she had appendicitis. CT scan showed appendicitis. Surgery was consulted to take over the care of the patient. PAST MEDICAL HISTORY: She is about 6 weeks with a health child. No real medical issues. REVIEW OF SYSTEMS: No chest pain. No shortness of breath. No neurologic or endocrine problems. She had a fairly uneventful . No or GI complaints except as above, where she has been experiencing some abdominal pain and decreased appetite and some fevers and chills. PAST SURGICAL HISTORY: She has had in the past. The last menstrual period was the 31st. She is 3, para 3. MEDICATIONS: Does not take any medications. ALLERGIES: SHE IS ALLERGIC TO SHELLFISH AND CATS. PHYSICAL EXAMINATION: GENERAL: She is a well developed female, sitting in the emergency room. She is holding her right lower quadrant. NECK: Supple. CHEST: Clear. CARDIOVASCULAR: Heart is regular rate. ABDOMEN: Slightly obese, soft, with exquisite tenderness in the right lower quadrant, reproducible with pressure on the left lower quadrant. She has some minor rebound and guarding. EXTREMITIES: Moves all extremities well without clubbing, cyanosis or edema. NEUROLOGIC: She is alert and oriented, without focal deficits. PSYCHIATRIC: She is concerned over the medical condition, but appropriate. SKIN: She has a low Pfannenstiel incision well healed, without evidence of a hernia. LABORATORY DATA: She had a white count of 18,000, H and H 12 and 36. Chemistry essentially normal. Slightly elevated liver enzyme. Coags normal. Urinalysis clear. IMAGING STUDIES: Which I reviewed and read by Dr. Gilbert Gleason, shows appendicitis. Some free fluid in the cul-de-sac. ASSESSMENT: Classic appendicitis on physical exam, on history, confirmed with radiologic imaging. PLAN: Laparoscopic appendectomy. Called the OR. Things are getting set up. MD GUS Benedict , 07:03 PM , 07:40 PM
== END 2017-06-19 11:01 | disposition home or self-care (01) ==
LOC: NEPD 11:43 → INTOOBSV 16:28 → NEDA 16:28 → N06B 23:23
PROVIDERS: ADMIT Surgery; ATTEND Surgery
DX: K35.2 Acute appendicitis with generalized peritonitis (principal); R74.8 Abnormal levels of other serum enzymes; K76.0 Fatty (change of) liver, not elsewhere classified; Z91.013 Allergy to seafood
CPT/HCPCS: 00840; 44970; 74176; 80053; 81001; 83690; 84703; 85025; 85610; 85730; 88304; 94150; 96361; 96365; 96375; 96376; 99285; G0378; J0131; J1100; J1885; J1956; J2405; J3010; J7030; J7120

== ENCOUNTER 2017-06-29 13:32 | Inpatient (IN) | payer BC ==
[~2017-06-29] VITALS: Ht 170.2 cm; Wt 92.0 kg
[2017-06-29] VITALS (8 sets, daily range): BP systolic 120–145; BP diastolic 72–95; PULSE 72–102; RESP 16–20; TEMP 98.4–99.2; O2SAT 97–100
[~2017-06-29 13:32] MED LIST: NORC5TAB PO
[2017-06-29] MEDS ORDERED: IOHEXOL 350 MG/ML 10 ML VIAL (for RAD DIAG) IVCONTRAST ONE (13:33)
[2017-06-29 14:34] LABS: AUTOMATED NEUTROPHIL # 20.3 TH/MM3 (1.8-7.7); BASOPHIL # 0.1 TH/MM3 (0-0.2); BASOPHIL % 0.5 % (0.0-2.0); EOSINOPHIL # 0.1 TH/MM3 (0-0.4); EOSINOPHIL % 0.3 % (0.0-4.0); HEMATOCRIT 36.6 % (35.0-46.0); HEMOGLOBIN 12.4 GM/DL (11.6-15.3); LYMPH % 8.8 % (9.0-44.0); LYMPHOCYTE # 2.1 TH/MM3 (1.0-4.8); MEAN CELL VOLUME 80.3 FL (80.0-100.0); MEAN CORPUSCULAR HEMOGLOBIN 27.1 PG (27.0-34.0); MEAN CORPUSCULAR HGB CONC 33.8 % (32.0-36.0); MEAN PLATELET VOLUME 7.6 FL (7.0-11.0); MONO % 3.7 % (0.0-8.0); MONOCYTE # 0.9 TH/MM3 (0-0.9); NEUT % 86.7 % (16.0-70.0); PLATELET COUNT 339 TH/MM3 (150-450); RED BLOOD COUNT 4.56 MIL/MM3 (4.00-5.30); RED CELL DISTRIBUTION WIDTH 15.4 % (11.6-17.2); WHITE BLOOD COUNT 23.5 TH/MM3 (4.0-11.0)
[2017-06-29 14:51] LABS: ALBUMIN 3.6 GM/DL (3.4-5.0); ALT (GPT) 60 U/L (10-53); AST (GOT) 31 U/L (15-37); BICARBONATE 25.6 MEQ/L (21.0-32.0); BLOOD UREA NITROGEN 6 MG/DL (7-18); CALCIUM 8.8 MG/DL (8.5-10.1); CHLORIDE 104 MEQ/L (98-107); CREATININE 0.78 MG/DL (0.50-1.00); GLOMERULAR FILTRATION RATE 84 ML/MIN (>89); GLUCOSE,RANDOM 124 MG/DL (74-106); SODIUM (NA) 137 MEQ/L (136-145)
[2017-06-29 14:54] LABS: ALKALINE PHOSPHATASE 119 U/L (45-117); TOTAL BILIRUBIN ADULT 0.8 MG/DL (0.2-1.0); TOTAL PROTEIN 8.7 GM/DL (6.4-8.2)
[2017-06-29] MEDS ORDERED: ACETAMINOPHEN 1000 MG/100 ML 100 ML IV ONE (16:00)
[2017-06-29] MEDS ORDERED: PIPERACIL-TAZO 4.5 GM PREMIX 100 ML IV ONE ×2 (16:00→17:30)
[2017-06-29] MEDS ORDERED: SODIUM CHLOR 0.9% 1000 ML INJ 1,000 ML IV ONE (16:00)
--- NOTE | 2017-06-29 16:01 | PD ---
Physical Exam Date Seen by Provider: Jun 29, 2017 Time Seen by Provider: 15:58 Narrative 37-year-old female came to the emergency room sent from urgent care for abdominal pain mostly in the bilateral lower abdominal area since yesterday. Patient had appendectomy done on 06/18/[address] Rebolledo in this hospital. Patient says her symptoms started last night. She has a temperature 101.5. The urgent care physician appreciated a rebound tenderness in the right lower quadrant area. Apparently he was contacted and he had asked the on-call surgeon to be called once patient comes in. There was blood work done in the waiting room and she has a significant leukocytosis. Lactic acid is within normal limits. Patient will be seen by my nurse practitioner and I am supervising her. No history of vomiting. Patient is also 2 months started her menstrual cycle yesterday. No foul-smelling discharge. Abdomen is slightly distended and tender with localized guarding in the right lower quadrant area. There is some rebound tenderness. A CT scan of the abdomen and pelvis has been ordered. Once the CAT scan is done and resulted I will contact general surgeon on-call Dr. Bustos and discussed the case with him. Data Data Last Documented VS Orders Orders Complete Blood Count With Diff (06/29/17 14:00) Comprehensive Metabolic Panel (06/29/17 14:00) Lactic Acid Sepsis Protocol (06/29/17 14:00) Blood Culture (06/29/17 14:00) Ct Abd/Pel W Iv Contrast(Rout) (06/29/17 ) Piperacil-Tazo 4.5 Gm Premix (Zosyn 4.5 (06/29/17 16:00) Acetaminophen 1000 Mg/100 Ml (Ofirmev 10 (06/29/17 16:00) Sodium Chlor 0.9% 1000 Ml Inj (Ns 1000 M (06/29/17 16:00) Iv Access Insert/Monitor (06/29/17 15:50) Ecg Monitoring (06/29/17 15:50) Oximetry (06/29/17 15:50) Urinalysis - C+S If Indicated (06/29/17 15:57) Iohexol 350 Inj (Omnipaque 350 Inj) (06/29/17 13:33) Piperacil-Tazo 4.5 Gm Premix (Zosyn 4.5 (06/29/17 17:30) Vancomycin Inj (Vancomycin Inj) (06/29/17 17:30) Admit Order (Ed Use Only) (06/29/17 18:35) Labs Laboratory Tests Test 06/29/17 14:21 06/29/17 16:55 White Blood Count 23.5 TH/MM3 Red Blood Count 4.56 MIL/MM3 Hemoglobin 12.4 GM/DL Hematocrit 36.6 % Mean Corpuscular Volume 80.3 FL Mean Corpuscular Hemoglobin 27.1 PG Mean Corpuscular Hemoglobin Concent 33.8 % Red Cell Distribution Width 15.4 % Platelet Count 339 TH/MM3 Mean Platelet Volume 7.6 FL Neutrophils (%) (Auto) 86.7 % Lymphocytes (%) (Auto) 8.8 % Monocytes (%) (Auto) 3.7 % Eosinophils (%) (Auto) 0.3 % Basophils (%) (Auto) 0.5 % Neutrophils # (Auto) 20.3 TH/MM3 Lymphocytes # (Auto) 2.1 TH/MM3 Monocytes # (Auto) 0.9 TH/MM3 Eosinophils # (Auto) 0.1 TH/MM3 Basophils # (Auto) 0.1 TH/MM3 CBC Comment DIFF FINAL Differential Comment Blood Urea Nitrogen 6 MG/DL Creatinine 0.78 MG/DL Random Glucose 124 MG/DL Total Protein 8.7 GM/DL Albumin 3.6 GM/DL Calcium Level 8.8 MG/DL Alkaline Phosphatase 119 U/L Aspartate Amino Transf (AST/SGOT) 31 U/L Alanine Aminotransferase (ALT/SGPT) 60 U/L Total Bilirubin 0.8 MG/DL Sodium Level 137 MEQ/L Potassium Level 3.5 MEQ/L Chloride Level 104 MEQ/L Carbon Dioxide Level 25.6 MEQ/L Anion Gap 7 MEQ/L Estimat Glomerular Filtration Rate 84 ML/MIN Lactic Acid Level 1.3 mmol/L Urine Color YELLOW Urine Turbidity CLEAR Urine pH 7.5 Urine Specific [place] 1.006 Urine Protein TRACE mg/dL Urine Glucose (UA) NEG mg/dL Urine Ketones NEG mg/dL Urine Occult Blood LARGE Urine Nitrite NEG Urine Bilirubin NEG Urine Urobilinogen LESS THAN 2.0 MG/DL Urine Leukocyte Esterase SMALL Urine RBC 26 /hpf Urine WBC 8 /hpf Urine Squamous Epithelial Cells <1 /hpf Urine Bacteria RARE /hpf Urine Mucus FEW /lpf Microscopic Urinalysis Comment CULT NOT INDICATED MDM Supervised Visit with ANGIE: Yes Narrative Course 5:[address] scan report finally came back and shows acute diverticulitis. There is no abscess. Patient has already received antibiotics. Given her leukocytosis and fever she will be admitted. I will discuss this with the patient and her . Admitting Information Admitting Physician Requests: Observation Scripts Metronidazole (Metronidazole) 500 Mg Tab 500 MG PO TID for Infection, #27 TAB 0 Refills Prov: Aubrie Austin MD 06/30/17 Ciprofloxacin (Ciprofloxacin) 500 Mg Tab 500 MG PO BID for Infection, #18 TAB 0 Refills Prov: Aubrie Austin MD 06/30/17 Benjamin Keyes MD Jun 29, 2017 16:01
--- NOTE | 2017-06-29 16:34 | PD ---
HPI Chief Complaint: GI Complaint Time Seen by Provider: 15:50 Travel History International Travel<30 days: No Contact w/Intl Traveler<30days: No Traveled to known affect area: No History of Present Illness HPI Patient is a 37-year-old female presenting to the emergency room for evaluation of fevers, abdominal pain. Patient had an appendectomy on June 18, she reports feeling well and the pain had improved until 2 days ago. She states she started her menstrual cycle and had normal cramping, she states she then developed a low-grade temp, the pain became more intense. She states she had max temp at home of 101.9. Pain in her abdomen is localized to the left and right lower quadrants. She states aching and cramping in nature. She states her pain is a 5 out of 10, there are no alleviating factors. Patient took Midol with acetaminophen to help alleviate her symptoms. This did help with her fever. She denies any shortness of breath, chest pain, nausea, vomiting, dysuria. PFSH Past Medical History Asthma: Yes Cardiovascular Problems: Yes Hypertension: Yes Neurologic: No Psychiatric: No Respiratory: Yes Sleep Apnea: No ?: Not LMP: NOW : 3 Para: 3 Past Surgical History Abdominal Surgery: No Appendectomy: Yes Cardiac Surgery: No Section: Yes Ear Surgery: No Endocrine Surgery: No Eye Surgery: No Genitourinary Surgery: No Gynecologic Surgery: Yes (c section) Neurologic Surgery: No Oral Surgery: No Thoracic Surgery: No Other Surgery: Yes Social History Alcohol Use: No Tobacco Use: No Substance Use: No Allergies-Medications (Allergen,Severity, Reaction): Uncoded Allergies: CATS (Allergy, Unknown, 05/16/17) SHELLFISH (Allergy, Unknown, 05/16/17) Reported Meds & Prescriptions Reported Meds & Active Scripts Active [place] (Hydrocodone-Acetaminophen) 5 Mg-325 Mg Tab 1 Tab PO Q6H PRN Review of Systems Except as stated in HPI: all other systems reviewed are Neg General / Constitutional: Positive: Fever, Chills HENT: No: Headaches Cardiovascular: No: Chest Pain or Discomfort Respiratory: No: Shortness of Breath Gastrointestinal: Positive: Abdominal Pain, No: Nausea, Vomiting, Changes in Bowel Habits Genitourinary: Positive: Vaginal Bleeding Musculoskeletal: Positive: Cramping Physical Exam Narrative GENERAL: Well-developed, well-nourished, alert female. Presenting in no acute distress. SKIN: Warm and dry. No redness, warmth, exudates noted to previous surgical incisions on abdomen. HEAD: Atraumatic. Normocephalic. EYES: Pupils equal and round. No scleral icterus. No injection or drainage. ENT: No nasal bleeding or discharge. Mucous membranes pink and moist. NECK: Trachea midline. No JVD. CARDIOVASCULAR: Regular rate and rhythm. RESPIRATORY: No accessory muscle use. Clear to auscultation. Breath sounds equal bilaterally. GASTROINTESTINAL: Abdomen mildly distended, tender to palpation in bilateral lower quadrants, more so on the right.. Hepatic and splenic margins not palpable. Positive bowel sounds. MUSCULOSKELETAL: Extremities without clubbing, cyanosis, or edema. No obvious deformities. NEUROLOGICAL: Awake and alert. No obvious cranial nerve deficits. Motor grossly within normal limits. Five out of 5 muscle strength in the arms and legs. Normal speech. PSYCHIATRIC: Appropriate mood and affect; insight and judgment normal. Data Data Last Documented VS Vital Signs Date Time Temp Pulse Resp B/P (MAP) Pulse Ox O2 Delivery O2 Flow Rate FiO2 06/29/17 18:21 18 06/29/17 18:20 72 120/72 (88) 99 Room Air 06/29/17 13:52 99.0 Orders Orders Complete Blood Count With Diff (06/29/17 14:00) Comprehensive Metabolic Panel (06/29/17 14:00) Lactic Acid Sepsis Protocol (06/29/17 14:00) Blood Culture (06/29/17 14:00) Ct Abd/Pel W Iv Contrast(Rout) (06/29/17 ) Piperacil-Tazo 4.5 Gm Premix (Zosyn 4.5 (06/29/17 16:00) Acetaminophen 1000 Mg/100 Ml (Ofirmev 10 (06/29/17 16:00) Sodium Chlor 0.9% 1000 Ml Inj (Ns 1000 M (06/29/17 16:00) Iv Access Insert/Monitor (06/29/17 15:50) Ecg Monitoring (06/29/17 15:50) Oximetry (06/29/17 15:50) Urinalysis - C+S If Indicated (06/29/17 15:57) Iohexol 350 Inj (Omnipaque 350 Inj) (06/29/17 13:33) Piperacil-Tazo 4.5 Gm Premix (Zosyn 4.5 (06/29/17 17:30) Vancomycin Inj (Vancomycin Inj) (06/29/17 17:30) Admit Order (Ed Use Only) (06/29/17 18:35) Labs Laboratory Tests Test 06/29/17 14:21 06/29/17 16:55 White Blood Count 23.5 TH/MM3 Red Blood Count 4.56 MIL/MM3 Hemoglobin 12.4 GM/DL Hematocrit 36.6 % Mean Corpuscular Volume 80.3 FL Mean Corpuscular Hemoglobin 27.1 PG Mean Corpuscular Hemoglobin Concent 33.8 % Red Cell Distribution Width 15.4 % Platelet Count 339 TH/MM3 Mean Platelet Volume 7.6 FL Neutrophils (%) (Auto) 86.7 % Lymphocytes (%) (Auto) 8.8 % Monocytes (%) (Auto) 3.7 % Eosinophils (%) (Auto) 0.3 % Basophils (%) (Auto) 0.5 % Neutrophils # (Auto) 20.3 TH/MM3 Lymphocytes # (Auto) 2.1 TH/MM3 Monocytes # (Auto) 0.9 TH/MM3 Eosinophils # (Auto) 0.1 TH/MM3 Basophils # (Auto) 0.1 TH/MM3 CBC Comment DIFF FINAL Differential Comment Blood Urea Nitrogen 6 MG/DL Creatinine 0.78 MG/DL Random Glucose 124 MG/DL Total Protein 8.7 GM/DL Albumin 3.6 GM/DL Calcium Level 8.8 MG/DL Alkaline Phosphatase 119 U/L Aspartate Amino Transf (AST/SGOT) 31 U/L Alanine Aminotransferase (ALT/SGPT) 60 U/L Total Bilirubin 0.8 MG/DL Sodium Level 137 MEQ/L Potassium Level 3.5 MEQ/L Chloride Level 104 MEQ/L Carbon Dioxide Level 25.6 MEQ/L Anion Gap 7 MEQ/L Estimat Glomerular Filtration Rate 84 ML/MIN Lactic Acid Level 1.3 mmol/L Urine Color YELLOW Urine Turbidity CLEAR Urine pH 7.5 Urine Specific [place] 1.006 Urine Protein TRACE mg/dL Urine Glucose (UA) NEG mg/dL Urine Ketones NEG mg/dL Urine Occult Blood LARGE Urine Nitrite NEG Urine Bilirubin NEG Urine Urobilinogen LESS THAN 2.0 MG/DL Urine Leukocyte Esterase SMALL Urine RBC 26 /hpf Urine WBC 8 /hpf Urine Squamous Epithelial Cells <1 /hpf Urine Bacteria RARE /hpf Urine Mucus FEW /lpf Microscopic Urinalysis Comment CULT NOT INDICATED MDM Medical Decision Making Medical Screen Exam Complete: Yes Emergency Medical Condition: Yes Medical Record Reviewed: Yes Interpretation(s) Vital Signs Date Time Temp Pulse Resp B/P (MAP) Pulse Ox O2 Delivery O2 Flow Rate FiO2 06/29/17 15:57 97 Room Air 06/29/17 15:51 82 18 145/81 (102) 98 Room Air 06/29/17 13:52 99.0 102 20 145/87 (106) 98 Differential Diagnosis Abscess versus metabolic abnormality versus peritonitis versus endometritis versus other Narrative Course Patient is a 37-year-old female presenting to the emergency department with fevers increasing abdominal pain. Patient appendectomy on June 18, she had been feeling well until 2 days ago. Labs and imaging ordered and pending. Acetaminophen IV, IV fluids ordered. CBC with a white count of 23.5 with left shift Chemistry is unremarkable, lactic acid 1.3, urinalysis is not consistent with a urinary tract infection. Patient was started on Zosyn empirically. CT scan of the abdomen and pelvis which is read by the radiologist shows proximal sigmoid diverticulitis without abscess or free air. Enlarged uterus with numerous calcified and noncalcified fibroids. And there is trace free fluid in the pelvis. Findings discussed with my attending physician. Patient will be admitted to medicine. Discussed with Dr. Casanova who accepted admission, admit orders placed. Patient and were made aware of findings and plan of care. They are agreeable. 2044 patient reported that she felt itchy and her cheeks are flushed while the vancomycin was infusing. Vancomycin was discontinued, normal saline was started and IV Benadryl ordered. RN advised to notify attending physician. Sepsis Criteria SIRS Criteria (2 or more): Heart rate over 90, WBC > 66846, < 4000 or > 10% bands Sepsis Criteria (SIRS+source): Infect source susp/known Diagnosis Primary Impression: Acute diverticulitis Additional Impression: Sepsis Qualified Codes: A41.9 - Sepsis, unspecified organism Admitting Information Admitting Physician Requests: Admit Condition: Stable Ashok,Paulasam PAUL Jun 29, 2017 16:34
[2017-06-29 17:20] LABS: BACTERIA, URINE RARE /hpf; BILIRUBIN, URINE NEG (NEG); BLOOD, URINE LARGE (NEG); GLUCOSE,URINE NEG (NEG); KETONE, URINE NEG (NEG); MUCUS URINE FEW /lpf (OCC); NITRITE,URINE NEG (NEG); PH, URINE 7.5 (5.0-8.5); SQUAMOUS EPITHELIAL CELL URINE <1 /hpf (0-5); URINE COLOR YELLOW (YELLW/STRAW); URINE LEUKOCYTE ESTERASE SMALL (NEG)
[2017-06-29] MEDS ORDERED: VANCOMYCIN INJ 1,000 MG in SODIUM CHLOR 0.9% 250 ML INJ 250 ML IV ONE (17:30)
--- NOTE | 2017-06-29 17:48 | RADRPT ---
EXAM DATE/TIME: 06/29/2017 17:21 [facility] COMPARISON: No previous studies available for comparison. INDICATIONS : Right side abdominal pain, fever. Recent appendectomy. IV CONTRAST: 87 cc Omnipaque 350 (iohexol) IV ORAL CONTRAST: No oral contrast ingested. RADIATION DOSE: 8.86 CTDIvol (mGy) MEDICAL HISTORY : Cardiovascular disease. Hypertension. SURGICAL HISTORY : Appendectomy. ENCOUNTER: Initial ACUITY: 2 days PAIN SCALE: 4/10 LOCATION: Right lower quadrant TECHNIQUE: Volumetric scanning of the abdomen and pelvis was performed. Using automated exposure control and ad justment of the mA and/or kV according to patient size, radiation dose was kept as low as reasonably achievable to obtain optimal diagnostic quality images. DICOM format image data is available electro nically for review and comparison. FINDINGS: Lung bases are clear. Mild fatty liver. Spleen, adrenals, kidneys and pancreas unremarkable. No calci fied gallstones. Within the pelvis there is inflammatory change around multiple diverticula in the proximal sigmoid co kyung characteristic of a sigmoid diverticulitis. No abscess, obstruction, or free air. Trace free flui d in the pelvis. There are numerous calcified and noncalcified masses within the uterus which is enlarged characterist ic of a fibroid uterus. CONCLUSION: 1. Proximal sigmoid diverticulitis without abscess or free air. 2. Enlarged uterus with numerous calcified and noncalcified fibroids. 3. Trace free fluid in the pelvis. Christian Murillo MD on June 29, 2017 at 17:42 Board Certified Radiologist. This report was verified electronically.
--- NOTE | 2017-06-29 18:40 | HHI.HP ---
[facility] Luciano Gilman M.D. Admission Diagnosis DIVERTICULITIS, SEPSIS Diagnoses: Chief Complaint: Abdominal pain, sent from urgent care Travel History International Travel<30 Days: No Contact w/Intl Traveler <30 Da: No Traveled to Known Affected Are: No Sepsis Criteria SIRS Criteria (2 or more): Temp > 100.9 or < 96.8, Heart rate over 90, WBC > 18139, < 4000 or > 10% bands Sepsis Criteria (SIRS+source): Infect source susp/known History of Present Illness 37-year-old female who presented to the emergency room with complaint of fevers and abdominal pain. The patient was sent from an urgent care. She had an appendectomy on June 18 and reportedly was feeling well until yesterday when she started to have cramping lower abdominal pain. She attributed the pain to her menstrual cycle. However she also started to have fever yesterday up to 101.9. The pain has been worsening, located on the lower quadrants described as coming in waves ranging from moderate to severe. She had a normal consistency bowel movement this morning. She denies any nausea or vomiting. Workup in the emergency room revealed acute diverticulitis on CT with marked leukocytosis. Of note, the patient reports she was seen for similar abdominal pain about a year ago at an urgent care and was treated empirically with antibiotics for diverticulitis. Review of Systems Constitutional: COMPLAINS OF: Fever, Chills Gastrointestinal: COMPLAINS OF: Abdominal pain, DENIES: Nausea, Vomiting Except as stated in HPI: all other systems reviewed are Neg Past Family Social History Past Medical History None Past Surgical History 9 years ago Laparoscopic appendectomy on June 18. Allergies: Uncoded Allergies: CATS (Allergy, Unknown, 05/16/17) SHELLFISH (Allergy, Unknown, 05/16/17) Family History Father from complication of liver cancer Mother has history of diverticulitis. Social History Does not use tobacco Drinks alcohol socially Denies illicit drug use Physical Exam Vital Signs Vital Signs Date Time Temp Pulse Resp B/P (MAP) Pulse Ox O2 Delivery O2 Flow Rate FiO2 06/29/17 18:21 18 06/29/17 18:20 72 18 120/72 (88) 99 Room Air 06/29/17 17:11 90 18 135/91 (106) 98 Room Air 06/29/17 15:57 97 Room Air 06/29/17 15:51 82 18 145/81 (102) 98 Room Air 06/29/17 13:52 99.0 102 20 145/87 (106) 98 Physical Exam GENERAL: This is a well-nourished, well-developed patient, in no apparent distress. SKIN: No rashes, ecchymoses or lesions. Cool and dry. HEAD: Atraumatic. Normocephalic. No temporal or scalp tenderness. EYES: Pupils equal round and reactive. Extraocular motions intact. No scleral icterus. No injection or drainage. ENT: Nose without bleeding, purulent drainage or septal hematoma. Throat without erythema, tonsillar hypertrophy or exudate. Uvula midline. Airway patent. NECK: Trachea midline. No JVD or lymphadenopathy. Supple, nontender, no meningeal signs. CARDIOVASCULAR: Regular rate and rhythm without murmurs, gallops, or rubs. RESPIRATORY: Clear to auscultation. Breath sounds equal bilaterally. No wheezes , rales, or rhonchi. GASTROINTESTINAL: Abdomen soft, postsurgical laparoscopic sites appear clean, Steri-Strips in place. Tender to palpation bilateral lower quadrants. Some rebound tenderness. MUSCULOSKELETAL: Extremities without clubbing, cyanosis, or edema. No joint tenderness, effusion, or edema noted. No calf tenderness. Negative Homans sign bilaterally. NEUROLOGICAL: Awake and alert. Cranial nerves II through XII intact. Motor and sensory grossly within normal limits. Five out of 5 muscle strength in all muscle groups. Normal speech. Laboratory Laboratory Tests Test 06/29/17 14:21 06/29/17 16:55 White Blood Count 23.5 Red Blood Count 4.56 Hemoglobin 12.4 Hematocrit 36.6 Mean Corpuscular Volume 80.3 Mean Corpuscular Hemoglobin 27.1 Mean Corpuscular Hemoglobin Concent 33.8 Red Cell Distribution Width 15.4 Platelet Count 339 Mean Platelet Volume 7.6 Neutrophils (%) (Auto) 86.7 Lymphocytes (%) (Auto) 8.8 Monocytes (%) (Auto) 3.7 Eosinophils (%) (Auto) 0.3 Basophils (%) (Auto) 0.5 Neutrophils # (Auto) 20.3 Lymphocytes # (Auto) 2.1 Monocytes # (Auto) 0.9 Eosinophils # (Auto) 0.1 Basophils # (Auto) 0.1 CBC Comment DIFF FINAL Differential Comment Blood Urea Nitrogen 6 Creatinine 0.78 Random Glucose 124 Total Protein 8.7 Albumin 3.6 Calcium Level 8.8 Alkaline Phosphatase 119 Aspartate Amino Transf (AST/SGOT) 31 Alanine Aminotransferase (ALT/SGPT) 60 Total Bilirubin 0.8 Sodium Level 137 Potassium Level 3.5 Chloride Level 104 Carbon Dioxide Level 25.6 Anion Gap 7 Estimat Glomerular Filtration Rate 84 Lactic Acid Level 1.3 Urine Color YELLOW Urine Turbidity CLEAR Urine pH 7.5 Urine Specific [place] 1.006 Urine Protein TRACE Urine Glucose (UA) NEG Urine Ketones NEG Urine Occult Blood LARGE Urine Nitrite NEG Urine Bilirubin NEG Urine Urobilinogen LESS THAN 2.0 Urine Leukocyte Esterase SMALL Urine RBC 26 Urine WBC 8 Urine Squamous Epithelial Cells <1 Urine Bacteria RARE Urine Mucus FEW Microscopic Urinalysis Comment CULT NOT INDICATED Date/Time Source Procedure Growth Status 06/29/17 14:26 Blood Peripheral Aerobic Blood Culture Pending Received 06/29/17 14:26 Blood Peripheral Anaerobic Blood Culture Pending Received Result Diagram: 06/29/17 1421 06/29/17 1421 Imaging Last Impressions Abdomen/Pelvis CT 06/29/17 0000 Signed Impressions: Service Date/Time: Thursday, June 29, 2017 17:21 - CONCLUSION: 1. Proximal sigmoid diverticulitis without abscess or free air. 2. Enlarged uterus with numerous calcified and noncalcified fibroids. 3. Trace free fluid in the pelvis. Christian Murillo MD Caprini VTE Risk Assessment Caprini VTE Risk Assessment: No/Low Risk (score <= 1) Caprini Risk Assessment Model Point Value = 1 Point Value = 2 Point Value = 3 Point Value = 5 Age 41-60 Minor surgery BMI > 25 kg/m2 Swollen legs Varicose veins or History of unexplained or recurrent spontaneous Oral contraceptives or hormone replacement Sepsis (< 1 month) Serious lung disease, including pneumonia (< 1 month) Abnormal pulmonary function Acute myocardial infarction Congestive heart failure (< 1 month) History of inflammatory bowel disease Medical patient at bed rest Age 61-74 Arthroscopic surgery Major open surgery (> 45 min) Laparoscopic surgery (> 45 min) Malignancy Confined to bed (> 72 hours) Immobilizing plaster cast Central venous access Age >= 75 History of VTE Family history of VTE Factor V Leiden Prothrombin [id number] Lupus anticoagulant Anticardiolipin antibodies Elevated serum homocysteine Heparin-induced thrombocytopenia Other congenital or acquired thrombophilia Stroke (< 1 month) Elective arthroplasty Hip, pelvis, or leg fracture Acute spinal cord injury (< 1 month) Prophylaxis Regimen Total Risk Factor Score Risk Level Prophylaxis Regimen 0-1 Low Early ambulation 2 Moderate Order ONE of the following: *Sequential Compression Device (SCD) *Heparin 5000 units SQ BID 3-4 Higher Order ONE of the following medications: *Heparin 5000 units SQ TID *Enoxaparin/Lovenox 40 mg SQ daily (WT < 150 kg, CrCl > 30 mL/min) *Enoxaparin/Lovenox 30 mg SQ daily (WT < 150 kg, CrCl > 10-29 mL/min) *Enoxaparin/Lovenox 30 mg SQ BID (WT < 150 kg, CrCl > 30 mL/min) AND/OR *Sequential Compression Device (SCD) 5 or more Highest Order ONE of the following medications: *Heparin 5000 units SQ TID (Preferred with Epidurals) *Enoxaparin/Lovenox 40 mg SQ daily (WT < 150 kg, CrCl > 30 mL/min) *Enoxaparin/Lovenox 30 mg SQ daily (WT < 150 kg, CrCl > 10-29 mL/min) *Enoxaparin/Lovenox 30 mg SQ BID (WT < 150 kg, CrCl > 30 mL/min) AND *Sequential Compression Device (SCD) Assessment and Plan Problem List: (1) Acute diverticulitis ICD Code: K57.92 - Diverticulitis of intestine, part unspecified, without perforation or abscess without bleeding (2) S/P laparoscopic appendectomy ICD Code: Z90.49 - Acquired absence of other specified parts of digestive tract (3) Leukocytosis ICD Code: D72.829 - Elevated white blood cell count, unspecified Assessment and Plan 37-year-old female with recent laparoscopic appendectomy presents with acute diverticulitis with marked leukocytosis. Acute diverticulitis with marked leukocytosis: CT abdomen/Pelvis reviewed. Patient received broad-spectrum antibiotics including vancomycin and Zosyn in the ED - Continue Zosyn - Follow blood cultures - N.p.o. for tonight - Pain control and IV fluid - Follow up CBC in AM DVT PPx: Ambulatory. Discussed Condition With NETTIE Merino Physician Certification 2 Midnight Certification Type: Admission for Inpatient Services Order for Inpatient Services The services are ordered in accordance with Medicare regulations or non- Medicare payer requirements, as applicable. In the case of services not specified as inpatient-only, they are appropriately provided as inpatient services in accordance with the 2-midnight benchmark. Estimated LOS (days): 2 days is the estimated time the patient will need to remain in the hospital, assuming treatment plan goals are met and no additional complications. Post-Hospital Plan: Home Aubrie Austin MD Jun 29, 2017 18:40
[2017-06-29] MEDS ORDERED: ONDANSETRON HCL 4 MG/2 ML VIAL IV PUSH PRN (18:45)
[2017-06-29] MEDS ORDERED: SODIUM CHLORIDE 0.9% FLUSH 10 ML FLUSH IV FLUSH PRN (18:45)
[2017-06-29] MEDS ORDERED: oxyCODONE/ACETAMINOPHEN 5 MG/325 MG TAB PO PRN (18:45)
[2017-06-29] MEDS ORDERED: MORPHINE SULFATE 4 MG/ML INJ IV PUSH PRN (18:45)
[2017-06-29] MEDS: SODIUM CHLOR 0.9% 1000 ML INJ 1,000 ML IV SCH (20:02)
[2017-06-29] MEDS ORDERED: diphenhydrAMINE HCL 50 MG/ML VIAL IV PUSH ONE (20:45)
[2017-06-29] MEDS: SODIUM CHLORIDE 0.9% FLUSH 10 ML FLUSH IV FLUSH SCH (21:00)
[2017-06-29] MEDS: PIPERACIL-TAZO 3.375 GM PREMIX 50 ML IV SCH (22:07)
[2017-06-30 00:37] VITALS: BP 121/72; PULSE 74; RESP 18; TEMP 99; O2SAT 99
[2017-06-30] MEDS: PIPERACIL-TAZO 3.375 GM PREMIX 50 ML IV SCH ×4 (03:23→23:10)
[2017-06-30] MEDS: SODIUM CHLOR 0.9% 1000 ML INJ 1,000 ML IV SCH ×2 (03:24→14:39)
[2017-06-30 04:24] VITALS: BP 121/71; PULSE 73; RESP 16; TEMP 98.4; O2SAT 97
[2017-06-30] MEDS: ACETAMINOPHEN 325 MG TAB PO PRN ×2 (05:03→19:37)
[2017-06-30 08:08] LABS: AUTOMATED NEUTROPHIL # 11.4 TH/MM3 (1.8-7.7); BASOPHIL % 0.2 % (0.0-2.0); EOSINOPHIL # 0.5 TH/MM3 (0-0.4); EOSINOPHIL % 3.2 % (0.0-4.0); HEMATOCRIT 32.5 % (35.0-46.0); HEMOGLOBIN 10.5 GM/DL (11.6-15.3); LYMPH % 12.7 % (9.0-44.0); LYMPHOCYTE # 1.8 TH/MM3 (1.0-4.8); MEAN CELL VOLUME 82.6 FL (80.0-100.0); MEAN CORPUSCULAR HEMOGLOBIN 26.6 PG (27.0-34.0); MEAN CORPUSCULAR HGB CONC 32.2 % (32.0-36.0); MEAN PLATELET VOLUME 7.5 FL (7.0-11.0); MONO % 4.5 % (0.0-8.0); MONOCYTE # 0.6 TH/MM3 (0-0.9); NEUT % 79.4 % (16.0-70.0); PLATELET COUNT 292 TH/MM3 (150-450); RED BLOOD COUNT 3.94 MIL/MM3 (4.00-5.30); RED CELL DISTRIBUTION WIDTH 15.5 % (11.6-17.2); WHITE BLOOD COUNT 14.3 TH/MM3 (4.0-11.0)
[2017-06-30 08:21] LABS: BICARBONATE 22.6 MEQ/L (21.0-32.0); CALCIUM 8.3 MG/DL (8.5-10.1); CREATININE 0.64 MG/DL (0.50-1.00)
[2017-06-30 08:48] VITALS: BP 111/73; PULSE 67; RESP 17; TEMP 97.7; O2SAT 94
[2017-06-30] MEDS: SODIUM CHLORIDE 0.9% FLUSH 10 ML FLUSH IV FLUSH SCH ×2 (09:00→21:00)
--- NOTE | 2017-06-30 10:44 | HHI.PR ---
Subjective Remarks One episode of diarrhea this morning. Abdominal pain significantly improved. No nausea. Patient and her inquired about possibility of going home today. Objective Vitals Vital Signs Date Time Temp Pulse Resp B/P (MAP) Pulse Ox O2 Delivery O2 Flow Rate FiO2 06/30/17 08:48 97.7 67 17 111/73 (86) 94 06/30/17 04:24 98.4 73 16 121/71 (88) 97 06/30/17 00:37 99.0 74 18 121/72 (88) 99 06/29/17 22:13 18 06/29/17 21:45 99.2 76 16 140/80 (100) 100 06/29/17 21:17 75 16 125/83 (97) 99 Room Air 06/29/17 18:21 18 06/29/17 18:20 72 18 120/72 (88) 99 Room Air 06/29/17 17:11 90 18 135/91 (106) 98 Room Air 06/29/17 15:57 97 Room Air 06/29/17 15:51 82 18 145/81 (102) 98 Room Air 06/29/17 13:52 99.0 102 20 145/87 (106) 98 I/O 06/29/17 06/29/17 06/29/17 06/30/17 06/30/17 06/30/17 07:00 15:00 23:00 07:00 15:00 23:00 Intake Total 1200 ml Balance 1200 ml Intake IV Total 1200 ml Result Diagram: 06/30/17 0711 06/30/17 0711 Objective Remarks GENERAL: This is a well-nourished, well-developed patient, in no apparent distress. CARDIOVASCULAR: Normal rate and regular rhythm without murmurs, gallops, or rubs. RESPIRATORY: Good respiratory efforts. Breath sounds equal and clear to auscultation bilaterally. GASTROINTESTINAL: Abdomen soft, non-distended. Nontender to palpation. Normal active bowel sounds MUSCULOSKELETAL: Extremities without cyanosis, or edema. NEURO: Alert & Oriented x4 to person, place, time, situation. Moves all ext x4 PSYCH: Appropriate mood and affect. A/P Problem List: (1) Acute diverticulitis ICD Code: K57.92 - Diverticulitis of intestine, part unspecified, without perforation or abscess without bleeding Plan: Patient is progressing very quickly. She is significantly better this morning. Inquiring about possibility of going home today. Leukocytosis significantly improved. - Advance diet - Continue IV antibiotics and IV fluid. - Encouraging that she did not require pain medication today. (2) S/P laparoscopic appendectomy ICD Code: Z90.49 - Acquired absence of other specified parts of digestive tract (3) Leukocytosis ICD Code: D72.829 - Elevated white blood cell count, unspecified Plan: Much improved. Assessment and Plan Advance diet Discharge Planning Patient has made significant improvement very quickly. I was later notified that she tolerated her diet very well without any abdominal pain. She wants to go home. We will repeat CBC and if WBC <14, patient can be discharged home. Discharge home in good condition Diet: Heart healthy. Avoid small seeds. Activity: Regular as tolerated Meds: Per med rec Follow-up: With PCP and surgery as previously scheduled. Aubrie Austin MD Jun 30, 2017 10:44
[2017-06-30 12:37] VITALS: BP 107/75; PULSE 64; RESP 16; TEMP 97.8; O2SAT 98
[2017-06-30 17:43] VITALS: BP 131/78; PULSE 68; RESP 18; TEMP 98.9; O2SAT 98
[2017-06-30] MEDS ORDERED: METR1TAB76 PO (19:04)
[2017-06-30] MEDS ORDERED: CIPR500T2 PO (19:04)
[2017-06-30 22:38] VITALS: BP 124/71; PULSE 60; RESP 18; TEMP 98.3; O2SAT 98
[2017-07-01] MEDS: PIPERACIL-TAZO 3.375 GM PREMIX 50 ML IV SCH ×2 (04:41→08:38)
[2017-07-01 07:58] LABS: AUTOMATED NEUTROPHIL # 7.8 TH/MM3 (1.8-7.7); BASOPHIL # 0.1 TH/MM3 (0-0.2); BASOPHIL % 0.5 % (0.0-2.0); EOSINOPHIL # 0.5 TH/MM3 (0-0.4); HEMATOCRIT 32.1 % (35.0-46.0); HEMOGLOBIN 10.7 GM/DL (11.6-15.3); LYMPH % 14.5 % (9.0-44.0); LYMPHOCYTE # 1.5 TH/MM3 (1.0-4.8); MEAN CELL VOLUME 80.5 FL (80.0-100.0); MEAN CORPUSCULAR HEMOGLOBIN 26.8 PG (27.0-34.0); MEAN CORPUSCULAR HGB CONC 33.3 % (32.0-36.0); MEAN PLATELET VOLUME 7.6 FL (7.0-11.0); MONO % 4.3 % (0.0-8.0); MONOCYTE # 0.4 TH/MM3 (0-0.9); NEUT % 75.7 % (16.0-70.0); PLATELET COUNT 311 TH/MM3 (150-450); RED BLOOD COUNT 3.99 MIL/MM3 (4.00-5.30); RED CELL DISTRIBUTION WIDTH 15.2 % (11.6-17.2); WHITE BLOOD COUNT 10.3 TH/MM3 (4.0-11.0)
[2017-07-01 08:27] VITALS: BP 130/80; PULSE 75; RESP 19; TEMP 98.9; O2SAT 97
[2017-07-01] MEDS: ACETAMINOPHEN 325 MG TAB PO PRN (08:38)
[2017-07-01] MEDS: SODIUM CHLOR 0.9% 1000 ML INJ 1,000 ML IV SCH (08:39)
[2017-07-01] MEDS: SODIUM CHLORIDE 0.9% FLUSH 10 ML FLUSH IV FLUSH SCH (08:39)
== END 2017-07-01 12:32 | disposition home or self-care (01) | DRG 872 ==
LOC: NEPC 13:32 → NEDA 18:36 → NEPHCDU 21:50
PROVIDERS: ADMIT Family Medicine; ATTEND Family Medicine
DX: A41.9 Sepsis, unspecified organism (principal); K57.32 Diverticulitis of large intestine without perforation or abscess without bleeding; I10 Essential (primary) hypertension; D25.9 Leiomyoma of uterus, unspecified; J45.909 Unspecified asthma, uncomplicated
CPT/HCPCS: 74177; 80048; 80053; 81001; 83605; 85025; 87040; 96361; 96365; J0131; J1200; J2270; J2543; J3370; J7030; J7050; Q9967